=== PATIENT | male | born 1945 | race Caucasian/White ===

== ENCOUNTER 2017-03-07 15:21 | Emergency (ER) | payer MEDICARE ==
[2017-03-07 15:32] VITALS: BP 148/61; RESP 16
--- NOTE | 2017-03-07 16:11 | ED ---
Skin/Abscess/FB HPI - General Chief complaint: Skin/Abscess/Foreign Body Stated complaint: Poss boil /Rt side Time Seen by Provider: 03/07/17 15:34 Source: patient, RN notes reviewed Mode of arrival: ambulatory Limitations: no limitations - History of Present Illness Initial comments: Patient 71-year-old male who presents emergency room today with chief complaint of abscess located to the right side of his abdomen. Patient does admit that he 's had redness and some swelling off and on over the last year. He states she' s gone to [facility]' emergency room and seen for several times. He states not been seen recently. States over the last 3 days she's noticed increased pain and redness and swelling. Patient denies any other complaints or associated symptoms. Patient denies any recent fever, chills, shortness of breath, chest pain, back pain, nausea or vomiting, numbness or tingling, dysuria or hematuria, constipation or diarrhea, headaches or visual changes, or any other complaints. - Related Data Home Medications Medication Instructions Recorded Confirmed Pantoprazole [Protonix] 40 mg PO DAILY 03/07/17 03/07/17 Simvastatin [Zocor] 20 mg PO HS 03/07/17 03/07/17 amLODIPine [Norvasc] 10 mg PO DAILY 03/07/17 03/07/17 metFORMIN HCL 1,000 mg PO BID 03/07/17 03/07/17 Previous Rx's Medication Instructions Recorded Sulfamethox-Tmp 800-160Mg [Bactrim 1 tab PO Q12HR #20 tab 03/07/17 DS 800-160 mg] Allergies Allergy/AdvReac Type Severity Reaction Status Date / Time No Known Allergies Allergy Verified 03/07/17 15:52 Review of Systems ROS Statement: Those systems with pertinent positive or pertinent negative responses have been documented in the HPI. ROS Other: All systems not noted in ROS Statement are negative. Past Medical History Past Medical History: Diabetes Mellitus, Hyperlipidemia, Hypertension History of Any Multi-Drug Resistant Organisms: None Reported Past Surgical History: No Surgical Hx Reported Past Psychological History: No Psychological Hx Reported Smoking Status: Current every day smoker Past Alcohol Use History: None Reported Past Drug Use History: None Reported General Exam - General Exam Comments Initial Comments: General: The patient is awake and alert, in no distress, and does not appear acutely ill. Eye: Pupils are equal, round and reactive to light, extra-ocular movements are intact. No nystagmus. There is normal conjunctiva bilaterally. No signs of icterus. Ears, nose, mouth and throat: There are moist mucous membranes and no oral lesions. Neck: The neck is supple, there is no tenderness or JVD. Cardiovascular: There is a regular rate and rhythm. No murmur, rub or gallop is appreciated. Respiratory: Lungs are clear to auscultation, respirations are non-labored, breath sounds are equal. No wheezes, stridor, rales, or rhonchi. Gastrointestinal: Soft, non-distended, non-tender abdomen without masses or organomegaly noted. There is no rebound or guarding present. No CVA tenderness. Bowel sounds are unremarkable. Musculoskeletal: Normal ROM, no tenderness. Strength 5/5. Sensation intact. Pulses equal bilaterally 2+. Neurological: A&O x 3. CN II-XII intact, There are no obvious motor or sensory deficits. Coordination appears grossly intact. Speech is normal. Skin: Patient does have small abscess located in the right lower quadrant. Superficial redness and swelling. Local redness or erythema locally. Limitations: no limitations Course Vital Signs 03/07/17 15:27 Temperature 99.1 F Pulse Rate 85 Respiratory 16 Rate Blood Pressure 148/61 O2 Sat by Pulse 99 Oximetry Procedures - Procedures Initial comment: Procedure: Incision and drainage The skin overlying the abscess was prepped with Betadine, and anesthetized with 1% lidocaine without epinephrine. A #11 scalpel was then used to incise the abscess. Some purulent material was then extracted from the lesion. Wound culture obtained. Gauze dressing placed on top, The patient tolerated the procedure well. Disposition Clinical Impression: Abscess Disposition: HOME SELF-CARE Condition: Good Instructions: Abscess (ED) Additional Instructions: Please use medication as discussed. Please follow-up with family doctor / surgeon in the next 2 days of symptoms have not improved. Please return to emergency room if the symptoms increase or worsen or for any other concerns. Prescriptions: Sulfamethox-Tmp 800-160Mg [Bactrim DS 800-160 mg] 1 tab PO Q12HR #20 tab Referrals: None,Stated [Primary Care Provider] - 1-2 days Celso Connolly MD [Medical Doctor] - 1-2 days Time of Disposition: 16:10
[2017-03-07 16:31] VITALS: PULSE 89; TEMP 97.8
== END 2017-03-07 16:20 | disposition home or self-care (01) ==
LOC: EC 15:21
DX: L02.211 Cutaneous abscess of abdominal wall (principal); E11.9 Type 2 diabetes mellitus without complications; E78.5 Hyperlipidemia, unspecified; I10 Essential (primary) hypertension; F17.200 Nicotine dependence, unspecified, uncomplicated; Z79.899 Other long term (current) drug therapy; Z79.84 Long term (current) use of oral hypoglycemic drugs
CPT/HCPCS: 10060; 87070; 87077; 87186; 87205; 99283

== ENCOUNTER 2023-07-02 12:13 | Emergency (ER) | payer MEDICARE ==
[2023-07-02 12:20] VITALS: RESP 18; TEMP 98.8
[2023-07-02] MEDS ORDERED: SODIUM CHLORIDE 0.9% 500 ML 500 ML IV STA (12:33)
[2023-07-02] MEDS ORDERED: fentaNYL (PF) 50 MCG/ML 2 ML AMP IVP STA (12:34)
--- NOTE | 2023-07-02 12:37 | ED ---
Abdominal Pain HPI - General Chief Complaint: Abdominal Pain Stated Complaint: Right Side Pain Time Seen by Provider: 07/02/23 12:25 Source: patient, RN notes reviewed, old records reviewed Mode of arrival: ambulatory Limitations: no limitations - History of Present Illness Initial Comments: Nontoxic appearing 78-year-old male presents ambulatory with complaints of 1 month of right lower quadrant/ groin pain. Patient states feels cramping in nature. Denies any fevers. No nausea vomiting or diarrhea. No dysuria. No back pain. Having normal bowel movements. States he does [facility] with his primary care Dr. Rios however pain worsened so his girlfriend brought him to the emergency room. Patient denies any previous abdominal surgeries. Is a half a pack a day smoker with history of diabetes, hypertension and hyperlipidemia. MD Complaint: abdominal pain -: month(s) (1) Location: RLQ Radiation: none Severity scale (1-10): 8 Quality: cramping Consistency: intermittent Improves With: nothing Worsens With: nothing Associated Symptoms: denies other symptoms - Related Data Home Medications Medication Instructions Recorded Confirmed Simvastatin [Zocor] 20 mg PO HS 03/07/17 07/02/23 metFORMIN HCL [Glucophage] 1,000 mg PO BID 03/07/17 07/02/23 Tamsulosin HCl [Flomax] 0.4 mg PO DAILY 07/02/23 07/02/23 amLODIPine BESYLATE/BENAZEPRIL 1 cap PO DAILY 07/02/23 07/02/23 [amLODIPine BESYLATE/BENAZEPRIL 5-10 mg] Allergies Allergy/AdvReac Type Severity Reaction Status Date / Time No Known Allergies Allergy Verified 07/02/23 13:26 Review of Systems ROS Statement: Those systems with pertinent positive or pertinent negative responses have been documented in the HPI. ROS Other: All systems not noted in ROS Statement are negative. Past Medical History Past Medical History: Diabetes Mellitus, Hyperlipidemia, Hypertension History of Any Multi-Drug Resistant Organisms: None Reported Past Surgical History: No Surgical Hx Reported Past Psychological History: No Psychological Hx Reported Past Alcohol Use History: None Reported Past Drug Use History: None Reported General Exam Limitations: no limitations General appearance: alert, in no apparent distress Head exam: Present: atraumatic, normocephalic Eye exam: Present: normal appearance. Absent: scleral icterus, conjunctival injection, periorbital swelling ENT exam: Present: mucous membranes moist Neck exam: Absent: tenderness, meningismus Respiratory exam: Present: normal lung sounds bilaterally. Absent: respiratory distress, accessory muscle use Cardiovascular Exam: Present: regular rate GI/Abdominal exam: Present: soft, tenderness (RLQ), normal bowel sounds. Absent: distended, guarding, rebound, rigid, mass, hernia Extremities exam: Present: full ROM, normal capillary refill. Absent: tenderness, pedal edema Back exam: Present: normal inspection, full ROM. Absent: tenderness, CVA tende rness (R), CVA tenderness (L), muscle spasm, paraspinal tenderness, vertebral tenderness, rash noted Neurological exam: Present: alert, oriented X3, normal gait Psychiatric exam: Present: normal affect, normal mood Skin exam: Present: warm, dry, normal color. Absent: cyanosis, diaphoretic, petechiae, pallor Course Vital Signs 07/02/23 07/02/23 12:17 15:11 Temperature 98.8 F Pulse Rate 98 97 Respiratory 18 18 Rate Blood Pressure 166/88 138/91 O2 Sat by Pulse 98 99 Oximetry Medical Decision Making - Medical Decision Making Was pt. sent in by a medical professional or institution (, PA, MAXILLOFACIAL PROSTHODONTIST, urgent care, hospital, or senior living...) When possible be specific @ -No Did you speak to anyone other than the patient for history (EMS, parent, family, police, friend...)? What history was obtained from this source @ -No Did you review nursing and triage notes (agree or disagree)? Why? @ -I reviewed and agree with nursing and triage notes Were old charts reviewed (outside hosp., previous admission, EMS record, old EKG, old radiological studies, urgent care reports/EKG's, senior living records)? Report findings @ -No old charts were reviewed Differential Diagnosis (chest pain, altered mental status, abdominal pain women, abdominal pain men, vaginal bleeding, weakness, fever, dyspnea, syncope, headache, dizziness, GI bleed, back pain, seizure, CVA, palpatations, mental health, musculoskeletal)? @ -Differential Abdominal Pain Men: Appendicitis, cholecystitis, diverticulosis, ischemic bowel, pancreatitis, hepatitis, UTI, gastroenteritis, AAA, incarcerated hernia, bowel obstruction, constipation, inflammatory bowel, hepatitis, peptic ulcer disease, splenic infarction, perforated viscus, testicular torsion, this is not meant to be an all-inclusive list EKG interpreted by me (3pts min.). @ -yes EKG interpreted by me shows sinus rhythm with a ventricular rate of 96, MS interval 0.182, QRS 0.80, QTC 0.394, normal axis. X-rays interpreted by me (1pt min.). @ -no CT interpreted by me (1pt min.). @ -no U/S interpreted by me (1pt. min.). @ -None done What testing was considered but not performed or refused? (CT, X-rays, U/S, labs)? Why? @ -None What meds were considered but not given or refused? Why? @ -None Did you discuss the management of the patient with other professionals (professionals i.e. , PA, MAXILLOFACIAL PROSTHODONTIST, lab, RT, psych nurse, social services designee, fleet manager, teacher, civilian jail officer, bottle caser)? Give summary @ -No Was smoking cessation discussed for >3mins.? @ -No Was critical care preformed (if so, how long)? @ -No Were there social determinants of health that impacted care today? How? (Ho melessness, low income, unemployed, alcoholism, drug addiction, transportation, low edu. Level, literacy, decrease access to med. care, custodial, rehab)? @ -No Was there de-escalation of care discussed even if they declined (Discuss DNR or withdrawal of care, Hospice)? DNR status @ -No What co-morbidities impacted this encounter? (DM, HTN, Smoking, COPD, CAD, Cancer, CVA, ARF, Chemo, Hep., AIDS, mental health diagnosis, sleep apnea, morbid obesity)? @ -Diabetes, hypertension, hyperlipidemia Was patient admitted / discharged? Hospital course, mention meds given and route, prescriptions, significant lab abnormalities, going to OR and other pertinent info. @ -Discharged Nontoxic appearing 78-year-old male presents ambulatory with complaints of 1 month of right lower quadrant/ groin pain. Patient states feels cramping in nature. Denies any fevers. No nausea vomiting or diarrhea. No dysuria. No back pain. Having normal bowel movements. States he does have an appointment at 7:00 tonight with his primary care Dr. Rios however pain worsened so his girlfriend brought him to the emergency room. Patient denies any previous abdominal surgeries. Is a half a pack a day smoker with history of diabetes, hypertension and hyperlipidemia. Patient states that he is concerned for possible appendicitis. On physical exam patient has minimal right lower quadrant pain. No evidence of hernia. No pain with flexion of the hip. CT abdomen and pelvis shows no evidence of acute abdominal process. Colonic diverticulosis. No obstructive uropathy or calculi. Second portion duodenal diverticulum. Moderate degenerative changes throughout the spine. Labs show no evidence of leukocytosis. Electrolytes show no concerning values. Troponin -0.012. EKG interpreted by me shows sinus rhythm with a ventricular rate of 96, MS interval 0.182, QRS 0.80, QTC 0.394, normal axis. Urinalysis trace leukocyte esterase 4 white blood cells and occasional bacteria. No nitrites. Patient denies any dysuria. Patient continues to complain of mild discomfort right groin. He was offered additional pain medication and declined. Patient does have an appointment with his primary care doctor this evening. He was discharged home and directed to follow up with his doctor. Return to the emergency room with a new or concerning symptoms. He is agreeable to this plan of care. Case discussed with Dr. Whitfield Undiagnosed new problem with uncertain prognosis? @ -No Drug Therapy requiring intensive monitoring for toxicity (Heparin, Nitro, Insulin, Cardizem)? @ -No Were any procedures done? @ -No Diagnosis/symptom? @ -Abdominal pain Acute, or Chronic, or Acute on Chronic? @ -Acute Uncomplicated (without systemic symptoms) or Complicated (systemic symptoms)? @ -Uncomplicated Side effects of treatment? @ -No Exacerbation, Progression, or Severe Exacerbation? @ -No Poses a threat to life or bodily function? How? (Chest pain, USA, IA, pneumonia, PE, COPD, DKA, ARF, appy, cholecystitis, CVA, Diverticulitis, Homicidal, Suicidal, threat to staff... and all critical care pts) @ -No - Lab Data Result diagrams: 07/02/23 12:58 07/02/23 12:58 Lab Results 07/02/23 07/02/23 07/02/23 Range/Units 12:58 12:58 12:58 WBC 5.3 (3.8-10.6) k/uL RBC 5.00 (4.30-5.90) m/uL Hgb 15.9 (13.0-17.5) gm/dL Hct 46.1 (39.0-53.0) % MCV 92.2 (80.0-100.0) fL MCH 31.8 (25.0-35.0) pg MCHC 34.5 (31.0-37.0) g/dL RDW 14.5 (11.5-15.5) % Plt Count 167 (150-450) k/uL MPV 8.5 Neutrophils % 64 % Lymphocytes % 22 % Monocytes % 7 % Eosinophils % 6 % Basophils % 1 % Neutrophils # 3.4 (1.3-7.7) k/uL Lymphocytes # 1.2 (1.0-4.8) k/uL Monocytes # 0.4 (0-1.0) k/uL Eosinophils # 0.3 (0-0.7) k/uL Basophils # 0.0 (0-0.2) k/uL PT 10.5 (9.0-12.0) sec INR 1.0 (<1.2) APTT 28.3 (22.0-30.0) sec Sodium 136 L (137-145) mmol/L Potassium 4.1 (3.5-5.1) mmol/L Chloride 107 (98-107) mmol/L Carbon Dioxide 19 L (22-30) mmol/L Anion Gap 10 mmol/L BUN 15 (9-20) mg/dL Creatinine 0.98 (0.66-1.25) mg/dL Est GFR (CKD-EPI)AfAm 85 (>60 ml/min/1.73 sqM) Est GFR (CKD-EPI)NonAf 74 (>60 ml/min/1.73 sqM) Glucose 104 H (74-99) mg/dL Plasma Lactic Acid Vaibhav (0.7-2.0) mmol/L Calcium 8.7 (8.4-10.2) mg/dL Total Bilirubin 0.9 (0.2-1.3) mg/dL AST 17 (17-59) U/L ALT 15 (4-49) U/L Alkaline Phosphatase 69 (38-126) U/L Troponin I (0.000-0.034) ng/mL Total Protein 6.6 (6.3-8.2) g/dL Albumin 4.1 (3.5-5.0) g/dL Amylase 57 (30-110) U/L Lipase 95 (23-300) U/L Urine Color Urine Appearance (Clear) Urine pH (5.0-8.0) Ur Specific [place] (1.001-1.035) Urine Protein (Negative) Urine Glucose (UA) (Negative) Urine Ketones (Negative) Urine Blood (Negative) Urine Nitrite (Negative) Urine Bilirubin (Negative) Urine Urobilinogen (<2.0) mg/dL Ur Leukocyte Esterase (Negative) Urine RBC (0-5) /hpf Urine WBC (0-5) /hpf Urine Bacteria (None) /hpf 07/02/23 07/02/23 07/02/23 Range/Units 12:58 12:58 12:59 WBC (3.8-10.6) k/uL RBC (4.30-5.90) m/uL Hgb (13.0-17.5) gm/dL Hct (39.0-53.0) % MCV (80.0-100.0) fL MCH (25.0-35.0) pg MCHC (31.0-37.0) g/dL RDW (11.5-15.5) % Plt Count (150-450) k/uL MPV Neutrophils % % Lymphocytes % % Monocytes % % Eosinophils % % Basophils % % Neutrophils # (1.3-7.7) k/uL Lymphocytes # (1.0-4.8) k/uL Monocytes # (0-1.0) k/uL Eosinophils # (0-0.7) k/uL Basophils # (0-0.2) k/uL PT (9.0-12.0) sec INR (<1.2) APTT (22.0-30.0) sec Sodium (137-145) mmol/L Potassium (3.5-5.1) mmol/L Chloride (98-107) mmol/L Carbon Dioxide (22-30) mmol/L Anion Gap mmol/L BUN (9-20) mg/dL Creatinine (0.66-1.25) mg/dL Est GFR (CKD-EPI)AfAm (>60 ml/min/1.73 sqM) Est GFR (CKD-EPI)NonAf (>60 ml/min/1.73 sqM) Glucose (74-99) mg/dL Plasma Lactic Acid Vaibhav 0.8 (0.7-2.0) mmol/L Calcium (8.4-10.2) mg/dL Total Bilirubin (0.2-1.3) mg/dL AST (17-59) U/L ALT (4-49) U/L Alkaline Phosphatase (38-126) U/L Troponin I <0.012 (0.000-0.034) ng/mL Total Protein (6.3-8.2) g/dL Albumin (3.5-5.0) g/dL Amylase (30-110) U/L Lipase (23-300) U/L Urine Color Colorless Urine Appearance Clear (Clear) Urine pH 7.0 (5.0-8.0) Ur Specific [place] 1.004 (1.001-1.035) Urine Protein Negative (Negative) Urine Glucose (UA) Negative (Negative) Urine Ketones Negative (Negative) Urine Blood Negative (Negative) Urine Nitrite Negative (Negative) Urine Bilirubin Negative (Negative) Urine Urobilinogen <2.0 (<2.0) mg/dL Ur Leukocyte Esterase Trace H (Negative) Urine RBC <1 (0-5) /hpf Urine WBC 4 (0-5) /hpf Urine Bacteria Occasional H (None) /hpf - EKG Data -: EKG Interpreted by [place] EKG shows normal: sinus rhythm (EKG interpreted by [place] shows sinus rhythm with a ventricular rate of 96, MS interval 0.182, QRS 0.80, QTC 0.394, normal axis) Disposition Clinical Impression: Abdominal pain Disposition: HOME SELF-CARE Condition: Good Additional Instructions: You bloodwork, CT scan of the abdomen and EKG do not show any abnormalities today. Follow-up with the primary care doctor as scheduled this evening. Return to the emergency room with any new or concerning symptoms including increased pain, pe rsistent nausea vomiting or fevers. Is patient prescribed a controlled substance at d/c from ED?: No Referrals: Anup Rios MD [Primary Care Provider] - 1-2 days Time of Disposition: 14:58
[2023-07-02 13:20] LABS: Basophils % (A) 1 %; Eosinophils # (A) 0.3 k/uL (0-0.7); Eosinophils % (A) 6 %; HCT 46.1 % (39.0-53.0); HGB 15.9 gm/dL (13.0-17.5); Lymphocytes # (A) 1.2 k/uL (1.0-4.8); Lymphocytes % (A) 22 %; MCH 31.8 pg (25.0-35.0); MCHC 34.5 g/dL (31.0-37.0); MCV 92.2 fL (80.0-100.0); Mean Platelet Volume 8.5; Monocytes # (A) 0.4 k/uL (0-1.0); Monocytes % (A) 7 %; Neutrophils # (A) 3.4 k/uL (1.3-7.7); Neutrophils % (A) 64 %; Platelet Count 167 k/uL (150-450); RDW 14.5 % (11.5-15.5); WBC 5.3 k/uL (3.8-10.6)
[2023-07-02 13:31] LABS: Appearance,Urine Clear (Clear); Bacteria,Urine Occasional /hpf; Bilirubin,Urine Negative (Negative); Blood,Urine Negative (Negative); Color,Urine Colorless; Glucose,Urine (UA) Negative (Negative); Ketones,Urine Negative (Negative); Leukocyte Esterase,Urine Trace (Negative); Nitrite,Urine Negative (Negative); Protein,Urine Negative (Negative); RBC,Urine <1 /hpf (0-5); Specific Gravity,Urine 1.004 (1.001-1.035); Urobilinogen,Urine <2.0 mg/dL (<2.0); WBC,Urine 4 /hpf (0-5)
[2023-07-02 13:32] LABS: Partial Thromboplastin Time 28.3 sec (22.0-30.0); Prothrombin Time 10.5 sec (9.0-12.0)
[2023-07-02 13:35] LABS: ALT 15 U/L (4-49); AST 17 U/L (17-59); African American GFR (CKD) 85 (>60 ml/min/1.73 sqM); Albumin 4.1 g/dL (3.5-5.0); Alkaline Phosphatase 69 U/L (38-126); Amylase 57 U/L (30-110); Anion Gap 10 mmol/L; Blood Urea Nitrogen 15 mg/dL (9-20); Calcium 8.7 mg/dL (8.4-10.2); Carbon Dioxide 19 mmol/L (22-30); Chloride 107 mmol/L (98-107); Glucose 104 mg/dL (74-99); Lipase 95 U/L (23-300); Non-African American GFR(CKD) 74 (>60 ml/min/1.73 sqM); Potassium 4.1 mmol/L (3.5-5.1); Sodium 136 mmol/L (137-145); Total Bilirubin 0.9 mg/dL (0.2-1.3); Total Protein 6.6 g/dL (6.3-8.2)
--- NOTE | 2023-07-02 14:35 | CT ---
EXAMINATION TYPE: CT abdomen pelvis w con CT DLP: 1398.8 mGycm, Automated exposure control for dose reduction was used. DATE OF EXAM: 07/02/2023 2:18 PM COMPARISON: None CLINICAL INDICATION:Male, 78 years old with history of abdominal pain; Abdominal pain TECHNIQUE: Axial CT of the abdomen and pelvis. Sagittal and coronal reformats were created on a [employer] workstation. Contrast used:100 mL of Isovue 300 with IV Contrast, (none if empty) Oral contrast used: without Oral Contrast (none if empty) FINDINGS: LOWER CHEST: Remote right rib 7 fracture with callus formation which is nonfused. ABDOMEN LIVER: Unremarkable GALLBLADDER AND BILE DUCTS: Unremarkable. PANCREAS: Unremarkable. SPLEEN: Unremarkable. ADRENAL GLANDS: Unremarkable. KIDNEYS AND URETERS: No evidence of hydronephrosis or renal calculus. The ureters are unremarkable. Bilateral simple appearing renal cysts. PELVIS BLADDER: Unremarkable REPRODUCTIVE: Unremarkable. ABDOMEN & PELVIS STOMACH AND BOWEL: No evidence of bowel obstruction. The appendix is normal Scattered colonic diverti cula. Large diverticulum off the second portion of the duodenum. PERITONEUM/RETROPERITONEUM: No evidence of pneumoperitoneum or free fluid. VASCULATURE: No evidence of aortic aneurysm. MUSCULOSKELETAL: No acute osseous abnormalities. Moderate disc degeneration changes are present throu ghout the thoracolumbar spine. LYMPH NODES: No gross evidence for lymphadenopathy. SOFT TISSUE/ABDOMINAL WALL: Fatty changes to the inguinal canals bilaterally. IMPRESSION: 1. No evidence for acute abdominal process. 2. Colonic diverticulosis. 3. No obstructive uropathy or calculi. 4. Second portion duodenal diverticulum. 5. Moderate degeneration changes throughout the spine.
[2023-07-02 15:12] VITALS: BP 138/91; PULSE 97
== END 2023-07-02 15:12 | disposition home or self-care (01) ==
LOC: EC 12:13
DX: K57.50 Diverticulosis of both small and large intestine without perforation or abscess without bleeding (principal); I10 Essential (primary) hypertension; E11.9 Type 2 diabetes mellitus without complications; E78.5 Hyperlipidemia, unspecified; Z79.899 Other long term (current) drug therapy; Z79.84 Long term (current) use of oral hypoglycemic drugs
CPT/HCPCS: 36415; 93005; 80053; 82150; 83605; 83690; 84484; 85025; 85610; 85730; 81001; 74177; 99284; 96374; J3010; Q9967

== ENCOUNTER → 2023-07-03 | Outpatient (CLI) | payer MEDICARE ==
[2023-07-03 14:56] LABS: African American GFR (CKD) 75 (>60 ml/min/1.73 sqM); Blood Urea Nitrogen 16 mg/dL (9-20); Non-African American GFR(CKD) 65 (>60 ml/min/1.73 sqM)
--- NOTE | 2023-07-03 16:20 | CT ---
EXAMINATION TYPE: CT angio abdomen pelvis DATE OF EXAM: 07/03/2023 COMPARISON: July 02, 2023 HISTORY: VASCULAR DISORDER OF INTESTINE. ct a/p w/ contrast yesterday. CT DLP: 1523.0 mGycm CONTRAST: CTA abdominal aorta with 3-D reconstruction is performed without Oral Contrast and without and with I V Contrast, patient injected with 100 mL of Isovue 370. Contrast CTA of the abdominal aorta was performed from the lung bases through the base of the pelvis. 3-D reconstruction imaging obtained at a separate workstation. CONTRAST CT ABDOMEN AND PELVIS ABDOMINAL AORTA: No evidence for abdominal aortic aneurysm. No dissection. Iliac vessels are symmet marta and patent. Celiac, SMA and KAMILA are all patent. Renal arteries enhance symmetrically. LIVER/GB- No significant abnormality is seen. PANCREAS- No significant abnormality is seen. SPLEEN- No significant abnormality is seen. ADRENALS- No significant abnormality is seen. KIDNEYS/BLADDER- No significant abnormality is seen. No cortical cysts redemonstrated. BOWEL-no inflammatory process seen. No evidence of bowel dilatation. Normal appendix. Incidental duod enal diverticulum. GENITAL ORGANS: Prostate calcifications. Bilateral scrotal hydroceles. LYMPH NODES- No greater than 1cm abdominal or pelvic lymph nodes are appreciated. OSSEOUS STRUCTURES-moderate degenerative changes lumbar spine. OTHER- No significant abnormality is seen. IMPRESSION- 1. No evidence for abdominal aortic aneurysm or dissection. Branch vessels are patent. 2. No evidence for inflammatory process of the gastrointestinal tract, free air or abscess.
== END | disposition home or self-care (01) ==
LOC: RADCTMAIN 13:08
PROVIDERS: ATTEND Family Medicine
DX: K55.9 Vascular disorder of intestine, unspecified (principal)
CPT/HCPCS: 82565; 84520; 36415; 74174; Q9967

== ENCOUNTER 2023-08-22 14:49 | Inpatient (IN) | payer MEDICARE ==
[2023-08-22 14:56] LABS: Glucose,Whole Blood 114 mg/dL (70-110)
[2023-08-22] MEDS ORDERED: SODIUM CHLORIDE 0.9% 1,000 ML IV STA ×2 (15:22→18:47)
[2023-08-22 15:45] LABS: Basophils % (A) 0 %; Eosinophils # (A) 0.1 k/uL (0-0.7); Eosinophils % (A) 1 %; HCT 47.2 % (39.0-53.0); HGB 16.2 gm/dL (13.0-17.5); Lymphocytes # (A) 0.6 k/uL (1.0-4.8); Lymphocytes % (A) 4 %; MCHC 34.4 g/dL (31.0-37.0); MCV 93.1 fL (80.0-100.0); Mean Platelet Volume 9.2; Monocytes # (A) 0.8 k/uL (0-1.0); Monocytes % (A) 5 %; Neutrophils # (A) 13.6 k/uL (1.3-7.7); Neutrophils % (A) 89 %; Platelet Count 181 k/uL (150-450); RBC 5.07 m/uL (4.30-5.90); RDW 14.3 % (11.5-15.5); WBC 15.3 k/uL (3.8-10.6)
--- NOTE | 2023-08-22 15:46 | ED ---
General Adult HPI - General Chief complaint: Weakness Stated complaint: Weakness Time Seen by Provider: 08/22/23 15:12 Source: patient, EMS, RN notes reviewed Mode of arrival: EMS Limitations: no limitations - History of Present Illness Initial comments: Patient is a 78-year-old male who presents emergency department for weakness. Apparently patient normally ambulates without ate a walker or cane. At approximately noon patient had a witnessed fall. I evaluated the patient shortly after 3 PM. Patient denies loss of consciousness. Is unknown if he is on blood thinners but thinks he is but cannot name which one. Fall from standing. Patient states that he felt like his legs gave out on him. Denies any focal weakness. Denies any confusion. States he normally has no issue with walking. Denies any pain. Denies chest pain, shortness of breath, abdominal pain, nausea, vomiting. Denies any headache or blurry vision. His no other acute complaints at this time. Denies any back pain. His only injury from the fall he states was when he fell into the wall and he has a small skin tear on his posterior right forearm. Presents for further evaluation at this time. - Related Data Home Medications Medication Instructions Recorded Confirmed Simvastatin [Zocor] 20 mg PO HS 03/07/17 08/22/23 metFORMIN HCL [Glucophage] 1,000 mg PO BID 03/07/17 08/22/23 Tamsulosin HCl [Flomax] 0.4 mg PO DAILY 07/02/23 08/22/23 amLODIPine BESYLATE/BENAZEPRIL 1 cap PO DAILY 07/02/23 08/22/23 [amLODIPine BESYLATE/BENAZEPRIL 5-10 mg] Allergies Allergy/AdvReac Type Severity Reaction Status Date / Time No Known Allergies Allergy Verified 08/22/23 16:25 Review of Systems ROS Statement: Those systems with pertinent positive or pertinent negative responses have been documented in the HPI. Review of Systems: CONST: Denies fever EYES: Denies blurry vision ENT: Denies nasal congestion C/V: Denies Chest pain RESP: Denies shortness of breath GI: Denies abdominal pain : Denies dysuria SKIN: Endorses right arm abrasion MSK: Denies joint pain. NEURO: Endorses Bilateral leg weakness ROS Other: All systems not noted in ROS Statement are negative. Past Medical History Past Medical History: Diabetes Mellitus, Hyperlipidemia, Hypertension History of Any Multi-Drug Resistant Organisms: None Reported Past Surgical History: No Surgical Hx Reported Additional Past Surgical History / Comment(s): nose Past Psychological History: No Psychological Hx Reported Smoking Status: Current every day smoker Past Alcohol Use History: None Reported Past Drug Use History: None Reported General Exam - General Exam Comments Initial Comments: General: Appears in no acute distress. HEAD: Normal with no signs of head trauma. Negative Menard sign, negative raccoon eyes. EYES: PERRLA, EOMI, conjunctiva normal, no discharge. Pupils are 3 mm and equal bilaterally. ENT: Hearing grossly intact, normal oropharynx. RESPIRATORY: Clear breath sounds bilaterally. No wheezes, rales, or rhonchi. C/V: Tachycardic. S1 and S2 auscultated, no edema, peripheral pulses 2+ and intact throughout ABD: Abd is soft, nontender, nondistended EXT: Normal range of motion, no obvious deformity. Pelvis is stable. Patient has a skin tear over the right forearm.Patient does have some midline lumbar spine tenderness to palpation without any step-offs or deformities. SKIN: No rashes or lesions observed on exposed skin. NEURO: Alert and oriented 2. Confused to year/time. Cranial nerves II through XII are intact. Patient has some mild bilateral decreased strength in lower extremities and symmetrical. No focal or unilateral weakness or sensory deficits. NIH currently is 0. GCS of 15. Patient's weakness is bilateral with no focal deficits. Patient is unable to stand however due to weakness when maikel ding. Denies lightheadedness. Baseline, per patient he ambulates without cane or a walker. Limitations: no limitations Course Vital Signs 08/22/23 08/22/23 08/22/23 14:57 15:06 18:13 Temperature 98.7 F Pulse Rate 115 H 128 H 99 Respiratory 22 18 18 Rate Blood Pressure 142/70 162/79 122/75 O2 Sat by Pulse 20 L 96 94 L Oximetry 08/22/23 19:33 Temperature Pulse Rate 96 Respiratory 18 Rate Blood Pressure 126/68 O2 Sat by Pulse 95 Oximetry Medical Decision Making - Medical Decision Making Was pt. sent in by a medical professional or institution (, PA, [facility], urgent care, hospital, or [place] [facility]...) When possible be specific @ -No Did you speak to anyone other than the patient for history (EMS, parent, family, police, friend...)? What history was obtained from this source @ -I spoke with nursing staff who spoke with EMS who provided the history. We were able to confirm with pharmacy the patient was previously on Xeralto last year but he has been off it for multiple months. is no longer on blood thinners. Patient uncertain why he was on it. Did you review nursing and triage notes (agree or disagree)? Why? @ -I reviewed and agree with nursing and triage notes Were old charts reviewed (outside hosp., previous admission, EMS record, old EKG, old radiological studies, urgent care reports/EKG's, [place] [facility] facility records)? Report findings @ -Old charts reviewed Differential Diagnosis (chest pain, altered mental status, abdominal pain women, abdominal pain men, vaginal bleeding, weakness, fever, dyspnea, syncope, headache, dizziness, GI bleed, back pain, seizure, CVA, palpatations, mental health, musculoskeletal)? @ -Differential Weakness: Hypoglycemia, shock, sepsis, hyponatremia, anemia, infection, GA, ETOH, adverse medicine reaction, overdose, stroke, this is not meant to be an all-inclusive list. EKG interpreted by me (3pts min.). @ -As above X-rays interpreted by me (1pt min.). @ -Patient's x-rays negative for any obvious traumatic injuries. Chest x-ray reveals no obvious acute cardio or process. CT interpreted by me (1pt min.). @ -CT lumbar spine reveals degenerative disc disease. CT brain reveals no obvious acute intracranial process. CT angiogram brain reveals no obvious occlusion or blockage suggestive of stroke. Radiology does interpreted as showing MCA asymmetry. U/S interpreted by me (1pt. min.). @ -None done What testing was considered but not performed or refused? (CT, X-rays, U/S, labs)? Why? @ -None What meds were considered but not given or refused? Why? @ -None Did you discuss the management of the patient with other professionals (professionals i.e. , PA, [facility], lab, RT, psych nurse, child protective services social worker, equipment service engineer, teacher, collections officer, rehabilitation caseworker)? Give summary @ -Discussed with Dr. Anderson of neurology who agreed that with the MCA asymmetry, in the absence of any obvious focal stroke symptoms as the patient's symptoms are generalized weakness and lower extremity weakness with an NIH of 0 with no actionable findings on CT per stroke, he recommends MRI. This was ordered. Discussed with the admitting physician, Dr. Ruby who accepted the patient. Was smoking cessation discussed for >3mins.? @ -No Was critical care preformed (if so, how long)? @ -Yes, 36 minutes. Were there social determinants of health that impacted care today? How? (Homelessness, low income, unemployed, alcoholism, drug addiction, transportation, low edu. Level, literacy, decrease access to med. care, snf, rehab)? @ -No Was there de-escalation of care discussed even if they declined (Discuss DNR or withdrawal of care, Hospice)? DNR status @ -No What co-morbidities impacted this encounter? (DM, HTN, Smoking, COPD, CAD, Cancer, CVA, ARF, Chemo, Hep., AIDS, mental health diagnosis, sleep apnea, morbid obesity)? @ -None Was patient admitted / discharged? Hospital course, mention meds given and route, prescriptions, significant lab abnormalities, going to OR and other pertinent info. @ -Based on patient's presentation and physical exam, I'm concerned for his bilateral lower extremity weakness which seems symmetrical. CVA less likely as he has no other symptoms and symptoms are bilateral and unilateral in nature however we will still evaluate the patient for possible CVA as EMS still nursing staff the patient did slump to his right when he fell. Unknown regarding blood thinners as patient cannot name one and we do not have any listed in his chart. Vital signs are within acceptable limits other than tachycardia. Broad workup will be obtained. We will start the patient on some IV fluids. Patient in agreement with this plan. Denies any significant pain at this time. EKG revealed sinus tachycardia with no evidence of acute ischemia. Patient's imaging unremarkable, other than CT angiogram of which reveals MCA asymmetry as read by radiology. No obvious occlusion or CVA. Patient's labs remarkable for UTI and leukocytosis. Patient started on IV Rocephin. We'll continue IV fluids. Cultures sent. On reevaluation, patient remains confused. He remains with bilateral lower extremity weakness. Would like to admit the patient at this time. He was in agreement with this plan. I spoke with Dr. Anderson of neuro who was in agreement with plan for MRI as well as the admitting physician Dr. Ruby who accepted the patient. Undiagnosed new problem with uncertain prognosis? @ -No Drug Therapy requiring intensive monitoring for toxicity (Heparin, Nitro, Insulin, Cardizem)? @ -No Were any procedures done? @ -No Diagnosis/symptom? @ -Confusion, weakness, UTI Acute, or Chronic, or Acute on Chronic? @ -Acute Uncomplicated (without systemic symptoms) or Complicated (systemic symptoms)? @ -Complicated Side effects of treatment? @ -none Exacerbation, Progression, or Severe Exacerbation] @ -no Poses a threat to life or bodily function? @ -Yes - Lab Data Result diagrams: 08/22/23 15:00 08/22/23 15:00 Lab Results 08/22/23 08/22/23 08/22/23 Range/Units 14:55 15:00 15:00 WBC 15.3 H (3.8-10.6) k/uL RBC 5.07 (4.30-5.90) m/uL Hgb 16.2 (13.0-17.5) gm/dL Hct 47.2 (39.0-53.0) % MCV 93.1 (80.0-100.0) fL MCH 32.0 (25.0-35.0) pg MCHC 34.4 (31.0-37.0) g/dL RDW 14.3 (11.5-15.5) % Plt Count 181 (150-450) k/uL MPV 9.2 Neutrophils % 89 % Lymphocytes % 4 % Monocytes % 5 % Eosinophils % 1 % Basophils % 0 % Neutrophils # 13.6 H (1.3-7.7) k/uL Lymphocytes # 0.6 L (1.0-4.8) k/uL Monocytes # 0.8 (0-1.0) k/uL Eosinophils # 0.1 (0-0.7) k/uL Basophils # 0.0 (0-0.2) k/uL PT 11.1 (9.0-12.0) sec INR 1.1 (<1.2) APTT 31.8 H (22.0-30.0) sec Sodium (137-145) mmol/L Potassium (3.5-5.1) mmol/L Chloride (98-107) mmol/L Carbon Dioxide (22-30) mmol/L Anion Gap mmol/L BUN (9-20) mg/dL Creatinine (0.66-1.25) mg/dL Est GFR (CKD-EPI)AfAm (>60 ml/min/1.73 sqM) Est GFR (CKD-EPI)NonAf (>60 ml/min/1.73 sqM) Glucose (74-99) mg/dL POC Glucose (mg/dL) 114 H (70-110) mg/dL POC Glu Rough [employer] Grader ID Chelsea Gilbert Plasma Lactic Acid Vaibhav (0.7-2.0) mmol/L Calcium (8.4-10.2) mg/dL Magnesium (1.6-2.3) mg/dL Total Bilirubin (0.2-1.3) mg/dL AST (17-59) U/L ALT (4-49) U/L Alkaline Phosphatase (38-126) U/L Troponin I (0.000-0.034) ng/mL Total Protein (6.3-8.2) g/dL Albumin (3.5-5.0) g/dL Urine Color Urine Appearance (Clear) Urine pH (5.0-8.0) Ur Specific [place] (1.001-1.035) Urine Protein (Negative) Urine Glucose (UA) (Negative) Urine Ketones (Negative) Urine Blood (Negative) Urine Nitrite (Negative) Urine Bilirubin (Negative) Urine Urobilinogen (<2.0) mg/dL Ur Leukocyte Esterase (Negative) Urine RBC (0-5) /hpf Urine WBC (0-5) /hpf Urine Bacteria (None) /hpf Hyaline Casts (0-2) /lpf Urine Mucus (None) /hpf Influenza Type A (PCR) (Not Detectd) Influenza Type B (PCR) (Not Detectd) RSV (PCR) (Not Detectd) SARS-CoV-2 (PCR) (Not Detectd) 08/22/23 08/22/23 08/22/23 Range/Units 15:00 15:00 15:00 WBC (3.8-10.6) k/uL RBC (4.30-5.90) m/uL Hgb (13.0-17.5) gm/dL Hct (39.0-53.0) % MCV (80.0-100.0) fL MCH (25.0-35.0) pg MCHC (31.0-37.0) g/dL RDW (11.5-15.5) % Plt Count (150-450) k/uL MPV Neutrophils % % Lymphocytes % % Monocytes % % Eosinophils % % Basophils % % Neutrophils # (1.3-7.7) k/uL Lymphocytes # (1.0-4.8) k/uL Monocytes # (0-1.0) k/uL Eosinophils # (0-0.7) k/uL Basophils # (0-0.2) k/uL PT (9.0-12.0) sec INR (<1.2) APTT (22.0-30.0) sec Sodium 132 L (137-145) mmol/L Potassium 4.3 (3.5-5.1) mmol/L Chloride 101 (98-107) mmol/L Carbon Dioxide 22 (22-30) mmol/L Anion Gap 9 mmol/L BUN 14 (9-20) mg/dL Creatinine 0.91 (0.66-1.25) mg/dL Est GFR (CKD-EPI)AfAm >90 (>60 ml/min/1.73 sqM) Est GFR (CKD-EPI)NonAf 80 (>60 ml/min/1.73 sqM) Glucose 101 H (74-99) mg/dL POC Glucose (mg/dL) (70-110) mg/dL POC Glu [employer] [place] Grader ID Plasma Lactic Acid Vaibhav 1.7 (0.7-2.0) mmol/L Calcium 9.2 (8.4-10.2) mg/dL Magnesium 1.8 (1.6-2.3) mg/dL Total Bilirubin 1.1 (0.2-1.3) mg/dL AST 18 (17-59) U/L ALT 15 (4-49) U/L Alkaline Phosphatase 76 (38-126) U/L Troponin I <0.012 (0.000-0.034) ng/mL Total Protein 7.0 (6.3-8.2) g/dL Albumin 4.2 (3.5-5.0) g/dL Urine Color Urine Appearance (Clear) Urine pH (5.0-8.0) Ur Specific [place] (1.001-1.035) Urine Protein (Negative) Urine Glucose (UA) (Negative) Urine Ketones (Negative) Urine Blood (Negative) Urine Nitrite (Negative) Urine Bilirubin (Negative) Urine Urobilinogen (<2.0) mg/dL Ur Leukocyte Esterase (Negative) Urine RBC (0-5) /hpf Urine WBC (0-5) /hpf Urine Bacteria (None) /hpf Hyaline Casts (0-2) /lpf Urine Mucus (None) /hpf Influenza Type A (PCR) (Not Detectd) Influenza Type B (PCR) (Not Detectd) RSV (PCR) (Not Detectd) SARS-CoV-2 (PCR) (Not Detectd) 08/22/23 08/22/23 Range/Units 15:22 15:23 WBC (3.8-10.6) k/uL RBC (4.30-5.90) m/uL Hgb (13.0-17.5) gm/dL Hct (39.0-53.0) % MCV (80.0-100.0) fL MCH (25.0-35.0) pg MCHC (31.0-37.0) g/dL RDW (11.5-15.5) % Plt Count (150-450) k/uL MPV Neutrophils % % Lymphocytes % % Monocytes % % Eosinophils % % Basophils % % Neutrophils # (1.3-7.7) k/uL Lymphocytes # (1.0-4.8) k/uL Monocytes # (0-1.0) k/uL Eosinophils # (0-0.7) k/uL Basophils # (0-0.2) k/uL PT (9.0-12.0) sec INR (<1.2) APTT (22.0-30.0) sec Sodium (137-145) mmol/L Potassium (3.5-5.1) mmol/L Chloride (98-107) mmol/L Carbon Dioxide (22-30) mmol/L Anion Gap mmol/L BUN (9-20) mg/dL Creatinine (0.66-1.25) mg/dL Est GFR (CKD-EPI)AfAm (>60 ml/min/1.73 sqM) Est GFR (CKD-EPI)NonAf (>60 ml/min/1.73 sqM) Glucose (74-99) mg/dL POC Glucose (mg/dL) (70-110) mg/dL POC Glu Rough [place] Grader ID Plasma Lactic Acid Vaibhav (0.7-2.0) mmol/L Calcium (8.4-10.2) mg/dL Magnesium (1.6-2.3) mg/dL Total Bilirubin (0.2-1.3) mg/dL AST (17-59) U/L ALT (4-49) U/L Alkaline Phosphatase (38-126) U/L Troponin I (0.000-0.034) ng/mL Total Protein (6.3-8.2) g/dL Albumin (3.5-5.0) g/dL Urine Color Light Yellow Urine Appearance Cloudy (Clear) Urine pH 5.5 (5.0-8.0) Ur Specific [place] 1.021 (1.001-1.035) Urine Protein Trace H (Negative) Urine Glucose (UA) Negative (Negative) Urine Ketones Negative (Negative) Urine Blood Trace H (Negative) Urine Nitrite Negative (Negative) Urine Bilirubin Negative (Negative) Urine Urobilinogen <2.0 (<2.0) mg/dL Ur Leukocyte Esterase Small H (Negative) Urine RBC 3 (0-5) /hpf Urine WBC 25 H (0-5) /hpf Urine Bacteria Few H (None) /hpf Hyaline Casts 1 (0-2) /lpf Urine Mucus Rare H (None) /hpf Influenza Type A (PCR) Not Detected (Not Detectd) Influenza Type B (PCR) Not Detected (Not Detectd) RSV (PCR) Not Detected (Not Detectd) SARS-CoV-2 (PCR) Not Detected (Not Detectd) - EKG Data -: EKG Interpreted by Me EKG Comments: 12-lead Electrocardiogram Interpretation Note EKG was reviewed and interpreted by myself. 12-lead ECG performed at 1540 is interpreted by me as revealing sinus tachycardia at a rate of 116 beats per minute. [place] is normal. VA interval is 176 ms, QRS duration is 80 ms, QTc is 371 ms.. There were no ST or T wave abnormalities to suggest myocardial ischemia or injury. R wave progression across the precordium was satisfactory. By my interpretation this EKG is non-diagnostic for acute ischemia. Critical Care Time Critical Care Time: Yes Total Critical Care Time: 36 Disposition Clinical Impression: Weakness, UTI (urinary tract infection), Confusion Disposition: ADMITTED IP TO THIS HOSP Condition: Stable Time of Disposition: 18:30
[2023-08-22 15:53] LABS: ALT 15 U/L (4-49); AST 18 U/L (17-59); African American GFR (CKD) >90 (>60 ml/min/1.73 sqM); Albumin 4.2 g/dL (3.5-5.0); Alkaline Phosphatase 76 U/L (38-126); Anion Gap 9 mmol/L; Blood Urea Nitrogen 14 mg/dL (9-20); Calcium 9.2 mg/dL (8.4-10.2); Carbon Dioxide 22 mmol/L (22-30); Chloride 101 mmol/L (98-107); Glucose 101 mg/dL (74-99); Magnesium 1.8 mg/dL (1.6-2.3); Non-African American GFR(CKD) 80 (>60 ml/min/1.73 sqM); Potassium 4.3 mmol/L (3.5-5.1); Sodium 132 mmol/L (137-145); Total Bilirubin 1.1 mg/dL (0.2-1.3)
[2023-08-22 15:57] LABS: INR 1.1 (<1.2); Partial Thromboplastin Time 31.8 sec (22.0-30.0); Prothrombin Time 11.1 sec (9.0-12.0)
--- NOTE | 2023-08-22 16:35 | XR ---
EXAMINATION TYPE: XR pelvis AP view DATE OF EXAM: 08/22/2023 CLINICAL HISTORY: pain TECHNIQUE: Single view the pelvis is submitted. FINDINGS: No evidence for fracture, dislocation or bony lesion. Joint spaces are mildly narrowed ri ght greater than left.. SI joints appear symmetric. IMPRESSION: 1. No acute fracture or dislocation seen. ICD 10 NO FRACTURE, INITIAL EVALUATION
--- NOTE | 2023-08-22 16:36 | XR ---
EXAMINATION TYPE: XR chest 2V DATE OF EXAM: 08/22/2023 COMPARISON: NONE HISTORY: Shortness of breath TECHNIQUE: Frontal and lateral views of the chest are obtained. FINDINGS: Scattered senescent parenchymal changes noted. Hyperinflation compatible with COPD. No evidence for infiltrate. No evidence for atelectasis. Heart size is stable. Mediastinal structures are stable and grossly unremarkable. No evidence for hilar prominence. Degenerative changes dorsal spine. IMPRESSION: 1. No evidence for acute pulmonary disease.
--- NOTE | 2023-08-22 16:36 | XR ---
EXAMINATION TYPE: XR forearm RT DATE OF EXAM: 08/22/2023 CLINICAL HISTORY: pain TECHNIQUE: Frontal and lateral images of the right forearm are obtained. COMPARISON: None. FINDINGS: There is no acute fracture/dislocation evident. The joint spaces appear within normal limi ts. The overlying soft tissue appears unremarkable. IMPRESSION: There is no acute fracture or dislocation. ICD 10 NO FRACTURE, INITIAL EVALUATION
--- NOTE | 2023-08-22 17:12 | CT ---
EXAMINATION TYPE: CT brain wo con DATE OF EXAM: 08/22/2023 COMPARISON: None HISTORY: weakness and neuro deficit CT DLP: 1193.[address] of the brain was performed. The ventricles, basal cisterns and sulci overlying the cerebral convexities demonstrate mild enlargem ent. There is no evidence for intracranial hemorrhage or sulcal effacement. There is a 4.5 x 2.7 cm arach noid cyst anterior aspect of the right middle cranial fossa. There is decreased attenuation about the periventricular white matter and deep white matter of both c erebral hemispheres, compatible with chronic small vessel ischemia. Differential diagnosis does inclu de demyelination. No mass effects are seen.No midline shift. Osseous calvarium is intact. If symptoms persist consider MRI. IMPRESSION: 1. Age related atrophic and chronic small vessel ischemic change without acute intracranial process s een at this time. 2. Arachnoid cyst as discussed.
--- NOTE | 2023-08-22 17:16 | CT ---
EXAMINATION TYPE: CT lumbar spine wo con DATE OF EXAM: 08/22/2023 5:00 PM COMPARISON: None HISTORY: bilateral leg weakness CT DLP: 1454.6 mGycm Automated exposure control for dose reduction was used. Unenhanced CT of the lumbar spine was performed. Bone and soft tissue window settings are submitted as well as coronal and sagittal reconstructions. L1-L2: Normal disc space height. No disc herniation protrusion or central stenosis. No facet joint arthropathy. No evidence for foraminal encroachment. L2-L3: Mild degenerative disc space narrowing. No evidence for central stenosis or disc herniation. F oramina are patent. Mild ventral spondylosis. L3-L4: Grade 1 anterolisthesis measuring 2 mm L3 on L4. Mild to moderate degenerative disc space narr owing. Moderate posterior disc bulge with effacement of the ventral thecal sac. There is mild central stenosis and bilateral lateral recess stenosis. Mild bilateral foraminal encroachment. L4-L5: Grade 1 anterolisthesis L4 and L5 measuring 2 mm. Mild to moderate degenerative disc space aster rowing. Posterior disc bulge with bilateral lateral recess stenosis and bilateral foraminal encroachm ent. Severe facet joint arthropathy. L5-S1: Mild degenerative disc space narrowing. Associated disc bulge with posterior central disc prot rusion. Mild effacement ventral thecal sac. Suspect right lateral recess stenosis. Mild bilateral for aminal encroachment. IMPRESSION: 1. Multilevel degenerative disc disease. 2. Mild central stenosis at L3-4 bilateral lateral recess stenosis. 3. Bilateral lateral recess stenosis at L4-5.
--- NOTE | 2023-08-22 17:25 | CT ---
EXAMINATION TYPE: CT angio head neck DATE OF EXAM: 08/22/2023 COMPARISON: None HISTORY: weakness and neuro deficit CT DLP: 592.2 mGycm CONTRAST: Performed with IV Contrast, patient injected with 65ml mL of Isovue 370. Combination Contrast CTA cervical carotids and [place] CTA cervical carotids with 3-D recons truction Contrast CTA of the cervical carotids was performed 3-D reconstruction imaging obtained at a separate workstation. Right carotid system: Mild plaque is seen of the right common carotid artery. There is mild plaque a lso noted at the carotid bulb and proximal ICA. No significant diameter reduction. ECA is patent. Right vertebral artery appears unremarkable. Left carotid system: Mild plaque is seen of the left common carotid artery. There is long segment so ft plaque extending 2.3 cm in length. Estimated diameter reduction of. 55%. Also noted at the carotid bulb and proximal ICA.. ECA is patent. Left vertebral artery appears unremarkable. IMPRESSION: 1. Long segment soft plaque proximal left ICA with estimated diameter reduction of 55%. CTA [place] with 3-D reconstruction Contrast CTA of the [place] was performed 3-D reconstruction imaging obtained at a separate workstation. Vertebrobasilar system as well as intracranial portions of the internal carotid arteries and their ma dorinda tributaries are patent. Vascular asymmetry of distal left MCA branches relative to the right. Co rrelate clinically. I do not see evidence for sizable aneurysm or vascular malformation. Please note MRI provides greater sensitivity and specificity. Visualized brain appears grossly unremarkable. IMPRESSION: 1. Vascular asymmetry of distal left MCA branches relative to the right. Correlate clinically. NASCET criteria was used in interpretation of this exam?
[2023-08-22 17:59] LABS: Appearance,Urine Cloudy (Clear); Bacteria,Urine Few /hpf; Bilirubin,Urine Negative (Negative); Blood,Urine Trace (Negative); Color,Urine Light Yellow; Glucose,Urine (UA) Negative (Negative); Hyaline Casts,Urine 1 /lpf (0-2); Ketones,Urine Negative (Negative); Leukocyte Esterase,Urine Small (Negative); Mucus,Urine Rare /hpf; Nitrite,Urine Negative (Negative); PH, Urine 5.5 (5.0-8.0); Protein,Urine Trace (Negative); RBC,Urine 3 /hpf (0-5); Specific Gravity,Urine 1.021 (1.001-1.035); Urobilinogen,Urine <2.0 mg/dL (<2.0); WBC,Urine 25 /hpf (0-5)
[2023-08-22] MEDS ORDERED: NALOXONE 0.4 MG/ML 1 ML VIAL IV PRN (18:42)
[2023-08-22] MEDS ORDERED: metFORMIN 500 MG TAB PO SCH (21:00)
[2023-08-22] MEDS ORDERED: ATORVASTATIN 10 MG TAB PO SCH (21:00)
[2023-08-23] MEDS ORDERED: ATORVASTATIN 80 MG TAB PO STA (00:36)
[2023-08-23] MEDS ORDERED: ASPIRIN 325 MG TAB PO STA (00:36)
--- NOTE | 2023-08-23 00:39 | P.HPIM ---
History of Present Illness H&P Date: 08/22/23 Patient is a 78-year-old male with a PMH of type II DM, hypertension, hyperlipidemia who was brought into the emergency room by EMS for fall and weakness. The history was obtained from the chart as the patient was very confused at the time of interview. Attempted to reach family via phone numbers listed on the chart with no response and full mailbox. The patient who was reportedly previously seen walking normally 2 days ago and does not use any assistive devices reportedly had a fall earlier today from standing home, with resulting right forearm abrasion. The patient had denied experiencing loss of consciousness and that his legs had given out on him. The patient was also noted to have right upper extremity weakness during the interview and reported that this has been ongoing for the past 2-3 weeks. He denied headaches or visual disturbances. Denied chest discomfort, shortness of breath, fever, chills. He does have an extensive smoking history and reports a chronic cough. Patient denied alcohol use. CT angiogram of the head and neck in the emergency room revealed vascular as ymmetry of the distal left MCA relative to the right with no other acute abnormalities. CT brain was unremarkable with CT lumbar spine also unremarkable. EKG revealed sinus tachycardia at 116 bpm. Chest x-ray was unremarkable. Forearm x-ray was unremarkable. Pelvis x-ray was unremarkable. Laboratory evaluation remarkable for leukocytosis of 15.3, hyponatremia with sodium 132, troponin less than 0.012, with UA indeterminate. ED documentation reviewed and case discussed with ED provider. Review of systems: Pertinent positives and negatives as discussed in HPI, a complete review of systems was performed and all other systems are negative. Physical examination: Vital signs reviewed General: non toxic, no distress, appears at stated age, obese Derm: no unusual rashes/lesions, warm Head: atraumatic, normocephalic, symmetric Eyes: EOMI, no lid lag, anicteric sclera, pupils equal round reactive to light ENT: Nose and ears atraumatic Neck: No cervical lymphadenopathy, trachea midline, supple Mouth: no lip lesion, mucus membranes moist Cardiovascular: S1S2 reg, no murmur, positive dorsalis pedis pulse bilateral, no edema Lungs: Bilateral expiratory wheezing appreciated with persistent cough, no accessory muscle use Abdominal: soft, nontender to palpation, no guarding Ext: muscle strength 3 out of 5 in bilateral lower extremities grossly, right upper extremity strength to out of 5, left upper extremity strength 4 out of 5, no gross muscle atrophy, no contractures Neuro: CN II-XI grossly intact, no gross focal neuro deficits Psych: Somewhat slow to respond, oriented to person and place, not oriented to time Assessment: Generalized weakness and confusion, unclear etiology, rule out CVA Indeterminate UA Leukocytosis Hyponatremia Imaging: CT angiogram of the head and neck in the emergency room revealed vascular asymmetry of the distal left MCA relative to the right with no other acute abnormalities. CT brain was unremarkable with CT lumbar spine also unremarkable. EKG revealed sinus tachycardia at 116 bpm. Chest x-ray was unremarkable. Forearm x-ray was unremarkable. Pelvis x-ray was unremarkable. Data Review: Laboratory evaluation remarkable for leukocytosis of 15.3, hyponatremia with sodium 132, troponin less than 0.012, with UA indeterminate. Plan: Initiate aspirin and statin Neurology consulted Fall precautions Neuro checks MRI brain ordered PT and speech consult Echocardiogram Cardiac monitoring Continue ceftriaxone for possible UTI in setting of confusion Continue with IV fluid for hydration 75 mL/hr DVT prophylaxis: Lovenox subq The patient is admitted with an anticipated greater than 2 midnight stay for evaluation of confusion CODE STATUS: Full Code Discussed with: Patient, chart Anticipated discharge place: Home, SNF Past Medical History Past Medical History: Diabetes Mellitus, Hyperlipidemia, Hypertension History of Any Multi-Drug Resistant Organisms: None Reported Past Surgical History: No Surgical Hx Reported Additional Past Surgical History / Comment(s): nose Past Psychological History: No Psychological Hx Reported Smoking Status: Current every day smoker Past Alcohol Use History: None Reported Past Drug Use History: None Reported - Past Family History Father Family Medical History: Unable to Obtain (patient confused) Medications and Allergies Home Medications Medication Instructions Recorded Confirmed Type Simvastatin [Zocor] 20 mg PO HS 03/07/17 08/22/23 History metFORMIN HCL [Glucophage] 1,000 mg PO BID 03/07/17 08/22/23 History Tamsulosin HCl [Flomax] 0.4 mg PO DAILY 07/02/23 08/22/23 History amLODIPine BESYLATE/BENAZEPRIL 1 cap PO DAILY 07/02/23 08/22/23 History [amLODIPine BESYLATE/BENAZEPRIL 5-10 mg] Allergies Allergy/AdvReac Type Severity Reaction Status Date / Time No Known Allergies Allergy Verified 08/22/23 16:25 Physical Exam Vitals: Vital Signs Temp Pulse Pulse Resp BP BP Pulse Ox 08/22/23 20:30 98.7 F 82 16 117/69 98 08/22/23 19:33 96 18 126/68 95 08/22/23 18:13 99 18 122/75 94 L 08/22/23 15:06 128 H 18 162/79 96 08/22/23 14:57 98.7 F 115 H 22 142/70 96 Intake and Output 08/22/23 08/22/23 08/23/23 14:59 22:59 06:59 Other: Voiding Method Urinal Weight 89.811 kg 89.811 kg Results CBC & Chem 7: 08/22/23 15:00 08/22/23 15:00 Labs: Abnormal Lab Results - Last 24 Hours (Table) 08/22/23 08/22/23 08/22/23 Range/Units 14:55 15:00 15:00 WBC 15.3 H (3.8-10.6) k/uL Neutrophils # 13.6 H (1.3-7.7) k/uL Lymphocytes # 0.6 L (1.0-4.8) k/uL APTT 31.8 H (22.0-30.0) sec Sodium (137-145) mmol/L Glucose (74-99) mg/dL POC Glucose (mg/dL) 114 H (70-110) mg/dL Urine Protein (Negative) Urine Blood (Negative) Ur Leukocyte Esterase (Negative) Urine WBC (0-5) /hpf Urine Bacteria (None) /hpf Urine Mucus (None) /hpf 08/22/23 08/22/23 Range/Units 15:00 15:22 WBC (3.8-10.6) k/uL Neutrophils # (1.3-7.7) k/uL Lymphocytes # (1.0-4.8) k/uL APTT (22.0-30.0) sec Sodium 132 L (137-145) mmol/L Glucose 101 H (74-99) mg/dL POC Glucose (mg/dL) (70-110) mg/dL Urine Protein Trace H (Negative) Urine Blood Trace H (Negative) Ur Leukocyte Esterase Small H (Negative) Urine WBC 25 H (0-5) /hpf Urine Bacteria Few H (None) /hpf Urine Mucus Rare H (None) /hpf Thrombosis Risk Factor Assmnt - Choose All That Apply Any of the Below Risk Factors Present?: No Each Risk Factor Represents 3 Points: Age 75 years or older Thrombosis Risk Factor Assessment Total Risk Factor Score: 3 Thrombosis Risk Factor Assessment Level: Moderate Risk
[2023-08-23] MEDS: lisinopriL 10 MG TAB PO SCH (07:58)
[2023-08-23] MEDS: TAMSULOSIN 0.4 MG CAP.ER.24H PO SCH (07:59)
[2023-08-23] MEDS: ASPIRIN 81 MG PO SCH (07:59)
[2023-08-23] MEDS: amLODIPine 5 MG TAB PO SCH (07:59)
[2023-08-23 10:58] LABS: HCT 42.8 % (39.6-50.0); HGB 14.4 d/dL (13.0-17.0); MCH 30.8 pg (27.0-32.0); MCHC 33.6 d/dL (32.0-37.0); MCV 91.5 FL (80.0-97.0); Mean Platelet Volume 10.6 FL (9.5-12.2); NRBC Per 100 WBC 0 X 10*3/uL (0.00-0.01); Platelet Count 184 X 10*3/uL (140-440); RBC 4.68 X 10*6/uL (4.40-5.60); RDW 13.8 % (11.5-14.5); WBC 15.48 X 10*3/uL (4.50-10.00)
[2023-08-23 10:59] LABS: Basophils # (A) 0.03 X 10*3/uL (0.00-0.10); Basophils % (A) 0.2 %; Eosinophils # (A) 0.02 X 10*3/uL (0.04-0.35); Eosinophils % (A) 0.1 %; Lymphocytes # (A) 0.73 X 10*3/uL (0.90-5.00); Lymphocytes % (A) 4.7 %; Monocytes % (A) 7.8 %; Neutrophils # (A) 13.43 X 10*3/uL (1.80-7.70); Neutrophils % (A) 86.7 %
[2023-08-23 11:25] LABS: BUN/Creat Ratio 14.11 Ratio (12.00-20.00); Blood Urea Nitrogen 12.7 mg/dL (9.0-27.0); Calcium 8.5 mg/dL (8.7-10.3); Chloride 105 mmol/L (96-109); Glucose 129 mg/dL (70-110); Sodium 136 mmol/L (135-145)
--- NOTE | 2023-08-23 11:58 | CA ---
Transthoracic Echo Report Name: Magnus De Paz Age: 78 Gender: M : 1945 Exam Date: 08/23/2023 08:25 Exam Location: [place] [facility] Ht (in): 68 Wt (lb): 198 Ordering Physician: Rhiannon Mcadams MD Attending/Referring Phys: Clerk Rating Arlette Rose RDCS Procedure CPT: Indications: possible CVA Cardiac Hx: Technical Quality: Fair Contrast 1: Total Dose (mL): Contrast 2: Total Dose (mL): MEASUREMENTS (Male / Female) Normal Values 2D ECHO LV Diastolic Diameter PLAX 3.6 cm 4.2 - 5.9 / 3.9 - 5.3 cm LV Systolic Diameter PLAX 2.7 cm IVS Diastolic Thickness 1.6 cm 0.6 - 1.0 / 0.6 - 0.9 cm LVPW Diastolic Thickness 1.5 cm 0.6 - 1.0 / 0.6 - 0.9 cm LV Relative Wall Thickness 0.8 RV Internal Dim ED PLAX 4.2 cm LVOT Diameter 1.7 cm LA Volume 48.8 cm??? 18 - 58 / 22 - 52 cm??? M-MODE Aortic Root Diameter MM 3.5 cm LA Systolic Diameter MM 5.4 cm LA Ao Ratio MM 1.5 AV Cusp Separation MM 1.1 cm DOPPLER AV Peak Velocity 160.9 cm/s AV Peak Gradient 10.4 mmHg AV Mean Velocity 129.0 cm/s AV Mean Gradient 7.1 mmHg AV Velocity Time Integral 35.1 cm LVOT Peak Velocity 86.8 cm/s LVOT Peak Gradient 3.0 mmHg LVOT Velocity Time Integral 20.5 cm LVOT Stroke Volume 45.8 cm??? LVOT Stroke Volume Index 22.5 ml/m??? LVOT Cardiac Index 1853.8 cm???/min???m??? AV Area Cont Eq vti 1.3 cm??? AV Area Cont Eq pk 1.2 cm??? MV Area PHT 2.2 cm??? Mitral E Point Velocity 65.6 cm/s Mitral A Point Velocity 116.5 cm/s Mitral E to A Ratio 0.6 MV Deceleration Time 352.1 ms MV E' Velocity 4.1 cm/s Mitral E to MV E' Ratio 15.8 FINDINGS Left Ventricle Moderately increased left ventricular wall thickness. Left ventricular cavity size normal. Normal left ventricular systolic function with no obvious regional wall motion abnormalities. Left ventricular ejection fraction is estimated at 55-60 %. Right Ventricle Right ventricular systolic pressure within normal limits. Moderate right ventricular dilatation. Right Atrium Normal right atrial size. Left Atrium Normal left atrial size. Mitral Valve Structurally normal mitral valve. No mitral stenosis, regurgitation or prolapse. Aortic Valve No aortic valve stenosis or regurgitation. Aortic valve sclerosis. Tricuspid Valve Structurally normal tricuspid valve. Trace to mild tricuspid regurgitation. Pulmonic Valve Trace pulmonic regurgitation. Pericardium No pericardial effusion. Aorta Normal size aortic root and proximal ascending aorta. CONCLUSIONS Technically difficult study. Endocardial margins are not very well seen. Normal LV size and systolic function with [id number] concentric LVH. Aortic valve sclerosis and mitral annular calcification mild mitral and tricuspid regurgitation. No pericardial effusion Previewed by: Dr. Petra Garcia MD (Electronically Signed) Final Date: 23 August 2023 11:58
--- NOTE | 2023-08-23 12:15 | P.CNNES ---
History of Present Illness Consult date: 08/23/23 Requesting physician: Phuc Mccullough Reason for Consult: confusion History of Present Illness: This is a 78-year-old gentleman with history of diabetes, hypertension and hyperlipidemia who presented emergency department after a fall. Some of the history is obtained from medical record that. The patient resides by himself and yesterday in the afternoon he fell and unsure of exact what transpired. He denies any loss of complexes, a tongue bite, urinary bowel incontinence. He denied to ED that he had any focal weakness or any confusion. Normally he has no issues walk-in. He notified the ED team that he fell into a wall and had a small skin tear on the posterior right forearm. Patient denied any history of A. fib. He denies being on antiplatelet at home. Denied any history of stroke. Per the ED team patient did not have any focal weakness and he did the some imaging which shows asymmetry of MCA and the NIH stroke scale was a 0. There is no thrombus on the MCA. Since the patient NIH stroke scale was a 0 and no thrombus and no IV TPA was given since the risk outweighed the benefit as well as no intervention since there is no thrombus. Upon seeing the patient today the nurse stated that she had these weakness of the right upper extremity and unsure when it started. Some other workup in our facility consisted of: Urinalysis seems questionable for urinary tract infection CT of the head is reported as age-related atrophic and chronic small vessel ischemic change without acute intracranial process seen at this time. Arachnoid cyst as discussed. CT angiography of the head and neck was reported as vascular asymmetry of the distal left MCA branches relative to the right. Correlate clinically. Nobody reported it is reported the patient has arachnoid cyst in the right middle cranial fossa measuring between 4.52.7 cm. Review of Systems The pertinent positive and negative as per HPI. Past Medical History Past Medical History: Diabetes Mellitus, Hyperlipidemia, Hypertension History of Any Multi-Drug Resistant Organisms: None Reported Past Surgical History: No Surgical Hx Reported Additional Past Surgical History / Comment(s): nose Past Psychological History: No Psychological Hx Reported Smoking Status: Current every day smoker Past Alcohol Use History: None Reported Past Drug Use History: None Reported - Past Family History Father Family Medical History: Unable to Obtain (patient confused) Medications and Allergies Home Medications Medication Instructions Recorded Confirmed Type Simvastatin [Zocor] 20 mg PO HS 03/07/17 08/22/23 History metFORMIN HCL [Glucophage] 1,000 mg PO BID 03/07/17 08/22/23 History Tamsulosin HCl [Flomax] 0.4 mg PO DAILY 07/02/23 08/22/23 History amLODIPine BESYLATE/BENAZEPRIL 1 cap PO DAILY 07/02/23 08/22/23 History [amLODIPine BESYLATE/BENAZEPRIL 5-10 mg] Allergies Allergy/AdvReac Type Severity Reaction Status Date / Time No Known Allergies Allergy Verified 08/22/23 16:25 Physical Examination - Vital Signs Vital Signs: Vital Signs Temp Pulse Pulse Resp BP BP Pulse Ox 08/23/23 07:02 98.1 F 91 16 108/67 92 L 08/23/23 00:42 98.1 F 74 18 133/69 96 08/22/23 20:30 98.7 F 82 16 117/69 98 08/22/23 19:33 96 18 126/68 95 08/22/23 18:13 99 18 122/75 94 L 08/22/23 15:06 128 H 18 162/79 96 08/22/23 14:57 98.7 F 115 H 22 142/70 96 Intake and Output 08/22/23 08/23/23 08/23/23 22:59 06:59 14:59 Other: Voiding Method Urinal # Voids 4 Weight 89.811 kg GENERAL: The patient is sitting in a recliner chair and is not in acute dis tress. NEUROLOGICAL: Higher mental function: The patient is awake, alert, oriented to self, place and time. Patient is following commands. No aphasia and no neglect. Cranial nerves: The pupils are round, equal and reactive to light Visual cherry are full to confrontation throughout. Extraocular movement is intact no nystagmus is noted. Facial sensation is normal to touch throughout. Has mild right nasolabial flattening. Hearing is mildly to moderately decreased bilaterally to hand rub. Tongue is midline and moved [id number] without any difficulty. No dysarthria is noted. Motor: The strength is right proximal upper extremity is 3 while distally is 2-3 mostly with extensors. Right lower is 4+. Otherwise left side is 5 over 5 throughout. Decrease tone over the right upper extremity. Cerebellum: Somewhat limited over the right upper extremity since weakness but normal finger to nose. . Sensation: Sensation is normal to touch throughout. Reflexes (right/left): 2+ throughout. Plantars are mute bilaterally. Results - Laboratory Findings CBC and BMP: 08/23/23 06:30 08/23/23 06:30 Abnormal Lab Findings: Abnormal Labs 08/22/23 08/22/23 08/22/23 14:55 15:00 15:00 WBC 15.3 H Neutrophils # 13.6 H Lymphocytes # 0.6 L Monocytes # Eosinophils # APTT 31.8 H Sodium Carbon Dioxide Glucose POC Glucose (mg/dL) 114 H Calcium Urine Protein Urine Blood Ur Leukocyte Esterase Urine WBC Urine Bacteria Urine Mucus 08/22/23 08/22/23 08/23/23 15:00 15:22 06:30 WBC 15.48 H Neutrophils # 13.43 H Lymphocytes # 0.73 L Monocytes # 1.20 H Eosinophils # 0.02 L APTT Sodium 132 L Carbon Dioxide Glucose 101 H POC Glucose (mg/dL) Calcium Urine Protein Trace H Urine Blood Trace H Ur Leukocyte Esterase Small H Urine WBC 25 H Urine Bacteria Few H Urine Mucus Rare H 08/23/23 06:30 WBC Neutrophils # Lymphocytes # Monocytes # Eosinophils # APTT Sodium Carbon Dioxide 21.0 L Glucose 129 H POC Glucose (mg/dL) Calcium 8.5 L Urine Protein Urine Blood Ur Leukocyte Esterase Urine WBC Urine Bacteria Urine Mucus Assessment and Plan Assessment: This is a 78-year-old gentleman with history of diabetes, hypertension who presented emergency department on 08/22/2023 after a fall at home. In the ED was felt that the patient had NIH stroke scale was 0 but had asymmetry of MCA on imaging but there is no thrombus. No IV TPA since no deficits on presentation and risk outweigh the benefit. Also no intervention since no thrombus. But today per nurse had right upper extremity weakness and unsure last normal. Likely acute ischemic stroke with right upper extremity weakness more than the right lower extremity weakness and the mild right nasolabial flattening): IV TPA since unknown last normal Diabetes Hypertension Lactic acidosis over the right middle cranial fossa. Plan: MRI of the brain with and without is ordered and is pending, 2-D echo was ordered I ordered lipid panel, hemoglobin A1c, TSH. Patient was started on aspirin 81 mg daily by ED team. I also start the patient on Plavix 75 mg daily. He was on Lipitor 10 mg daily at bedtime by ED team and I increase it to 40 mg daily at bedtime for secondary stroke prophylaxis. Continue Neuro checks Cardiac monitoring PT OT and PERSONAL LINES UNDERWRITER are consulted We'll defer the rest of the medical management to primary team For DVT prophylaxis I started the patient on subcu heparin 5000 that every 12 hours The plan was discussed with the patient and his nurse. Thank you for the consultation Time with Patient: Greater than 30
[2023-08-23] MEDS: CLOPIDOGREL 75 MG TAB PO SCH (12:27)
--- NOTE | 2023-08-23 14:28 | P.PN ---
Subjective Progress Note Date: 08/23/23 Patient is a 78-year-old male with a PMH of type II DM, hypertension, hyperlipidemia who was brought into the emergency room by EMS for fall and weakness. The history was obtained from the chart as the patient was very confused at the time of interview. Attempted to reach family via phone numbers listed on the chart with no response and full mailbox. The patient who was reportedly previously seen walking normally 2 days ago and does not use any assistive devices reportedly had a fall earlier today from standing home, with resulting right forearm abrasion. The patient had denied experiencing loss of consciousness and that his legs had given out on him. The patient was also noted to have right upper extremity weakness during the interview and reported that this has been ongoing for the past 2-3 weeks. He denied headaches or visual disturbances. Denied chest discomfort, shortness of breath, fever, chills. He does have an extensive smoking history and reports a chronic cough. Patient den ied alcohol use. CT angiogram of the head and neck in the emergency room revealed vascular asymmetry of the distal left MCA relative to the right with no other acute abnormalities. CT brain was unremarkable with CT lumbar spine also unremarkable. EKG revealed sinus tachycardia at 116 bpm. Chest x-ray was unremarkable. Forearm x-ray was unremarkable. Pelvis x-ray was unremarkable. Laboratory evaluation remarkable for leukocytosis of 15.3, hyponatremia with sodium 132, troponin less than 0.012, with UA indeterminate. 08/23 Patient was seen and examined. Pleasantly confused. Still with RUE weakness. Denies any dysuria.CBC shows WBC count of 15.48. BMP shows bicarb of 21, glucose 129, Ca 8.5. Echo shows EF 55-60% with LV thickness. Neurology consulted, recommends MRI brain, A1c, Lipid panel, TSH. General: non toxic, no distress, appears at stated age, obese Derm: no unusual rashes/lesions, warm Head: atraumatic, normocephalic, symmetric Eyes: EOMI, no lid lag, anicteric sclera ENT: Nose and ears atraumatic Neck: No cervical lymphadenopathy, trachea midline, supple Cardiovascular: S1S2 reg, no murmur, no edema Lungs: Bilateral expiratory wheezing appreciated with persistent cough, no accessory muscle use Ext: muscle strength 3 out of 5 in bilateral lower extremities grossly, right upper extremity strength to out of 5, left upper extremity strength 4 out of 5, no gross muscle atrophy, no contractures Psych: Somewhat slow to respond, oriented to person and place, not oriented to time Generalized weakness and confusion, RUE weakness, unclear etiology, rule out CVA Sepsis related to UTI Chronic conditions: type II DM, hypertension, hyperlipidemia Based on my assessment of this patient, this patient meets a high complexity level of care. Patient has an acute diagnosis of Acute metabolic encephalopathy with RLE weakness that poses a threat to life or bodily function. Generalized weakness and confusion, RUE weakness, unclear etiology, rule out CVA: MRI brain. A1c, Lipid panel. ASA 81 mg PO QD, Lipitor 40 mg PO QHS. Plavix 75 mg PO QD. Sepsis related to UTI: Rocephin 2g IV QD. Follow UCx, BCx. Telemetry monitoring. I have reviewed the following call center support consultant notes: Neurology note. I have reviewed the results of the following tests: CBC, BMP, Echo. I have ordered the following tests: Agree with MRI brain, A1c, Lipid panel, TSH. I have discussed the care of this patient with the following independent historian: I have independently interpreted the following test below: I have discussed the management of this patient with the following physician: Objective - Vital Signs Vital signs: Vital Signs Temp 98.1 F 08/23/23 07:02 Pulse 91 08/23/23 07:02 Resp 16 08/23/23 07:02 BP 108/67 08/23/23 07:02 Pulse Ox 92 L 08/23/23 07:02 FiO2 Intake & Output 08/22/23 08/23/23 08/23/23 18:59 06:59 18:59 Weight 89.811 kg 89.811 kg Other: Voiding Method Urinal # Voids 4 - Labs CBC & Chem 7: 08/23/23 06:30 08/23/23 06:30 Labs: Abnormal Lab Results - Last 24 Hours (Table) 08/22/23 08/22/23 08/22/23 Range/Units 14:55 15:00 15:00 WBC 15.3 H (3.8-10.6) k/uL Neutrophils # 13.6 H (1.3-7.7) k/uL Lymphocytes # 0.6 L (1.0-4.8) k/uL Monocytes # (0.20-1.00) X 10*3/uL Eosinophils # (0.04-0.35) X 10*3/uL APTT 31.8 H (22.0-30.0) sec Sodium (137-145) mmol/L Carbon Dioxide (21.6-31.8) mmol/L Glucose (74-99) mg/dL POC Glucose (mg/dL) 114 H (70-110) mg/dL Calcium (8.7-10.3) mg/dL Urine Protein (Negative) Urine Blood (Negative) Ur Leukocyte Esterase (Negative) Urine WBC (0-5) /hpf Urine Bacteria (None) /hpf Urine Mucus (None) /hpf 08/22/23 08/22/23 08/23/23 Range/Units 15:00 15:22 06:30 WBC 15.48 H (3.8-10.6) k/uL Neutrophils # 13.43 H (1.3-7.7) k/uL Lymphocytes # 0.73 L (1.0-4.8) k/uL Monocytes # 1.20 H (0.20-1.00) X 10*3/uL Eosinophils # 0.02 L (0.04-0.35) X 10*3/uL APTT (22.0-30.0) sec Sodium 132 L (137-145) mmol/L Carbon Dioxide (21.6-31.8) mmol/L Glucose 101 H (74-99) mg/dL POC Glucose (mg/dL) (70-110) mg/dL Calcium (8.7-10.3) mg/dL Urine Protein Trace H (Negative) Urine Blood Trace H (Negative) Ur Leukocyte Esterase Small H (Negative) Urine WBC 25 H (0-5) /hpf Urine Bacteria Few H (None) /hpf Urine Mucus Rare H (None) /hpf 08/23/23 Range/Units 06:30 WBC (3.8-10.6) k/uL Neutrophils # (1.3-7.7) k/uL Lymphocytes # (1.0-4.8) k/uL Monocytes # (0.20-1.00) X 10*3/uL Eosinophils # (0.04-0.35) X 10*3/uL APTT (22.0-30.0) sec Sodium (137-145) mmol/L Carbon Dioxide 21.0 L (21.6-31.8) mmol/L Glucose 129 H (74-99) mg/dL POC Glucose (mg/dL) (70-110) mg/dL Calcium 8.5 L (8.7-10.3) mg/dL Urine Protein (Negative) Urine Blood (Negative) Ur Leukocyte Esterase (Negative) Urine WBC (0-5) /hpf Urine Bacteria (None) /hpf Urine Mucus (None) /hpf
[2023-08-23] MEDS: ATORVASTATIN 40 MG TAB PO SCH (20:32)
[2023-08-23] MEDS: HEPARIN SODIUM,PORCINE 5,000 UNIT/ML 1 ML VIAL SQ SCH (20:32)
[2023-08-23] MEDS ORDERED: ATORVASTATIN 80 MG TAB PO SCH (21:00)
[2023-08-24] MEDS: HEPARIN SODIUM,PORCINE 5,000 UNIT/ML 1 ML VIAL SQ SCH ×2 (09:24→22:02)
[2023-08-24] MEDS: ASPIRIN 81 MG PO SCH (09:25)
[2023-08-24] MEDS: amLODIPine 5 MG TAB PO SCH (09:25)
[2023-08-24] MEDS: CLOPIDOGREL 75 MG TAB PO SCH (09:25)
[2023-08-24] MEDS: lisinopriL 10 MG TAB PO SCH (09:25)
[2023-08-24] MEDS: TAMSULOSIN 0.4 MG CAP.ER.24H PO SCH (09:25)
[2023-08-24] MEDS ORDERED: VANCOMYCIN IV PER PHARMACY 1 EACH MISC MISCELLANE PRN (09:42)
[2023-08-24] MEDS ORDERED: VANCOMYCIN 1,500 MG in SODIUM CHLORIDE 0.9% 500 ML 500 ML IVPB SCH (10:00)
--- NOTE | 2023-08-24 12:35 | MR ---
EXAMINATION TYPE: MR brain wo/w con DATE OF EXAM: 08/24/2023 COMPARISON: None HISTORY: Confusion TECHNIQUE: Multiplanar, multisequence images of the brain and brainstem is performed without and with IV contras t, utilizing 9 mL intravenous Gadavist . FINDINGS: The ventricles, basal cisterns and sulci over convexities are moderately enlarged consistent with mod erate generalized atrophy but appropriate for the patient's age. There is a subarachnoid cyst in the right temporal fossa. There is no mass effect or shift of the midline structures. Based on diffusion-weighted imaging, there are multiple small focal areas of diffusion restriction in the cortex of the left frontal and parietal lobes consistent with acute cortical infarcts likely sec ondary to shower emboli. Following contrast administration, there is no pathological enhancement throughout the brain parenchy ma The posterior fossa including the brainstem, fourth ventricle and cerebellar pontine angles appear no rmal. The intraorbital contents appear normal and symmetric. Visualized paranasal sinuses and mastoid air cells are well aerated. IMPRESSION: Multiple small acute cortical infarcts scattered throughout the left cerebral hemisphere involving th e frontal and parietal lobes. The findings are consistent with shower emboli. .
--- NOTE | 2023-08-24 14:39 | P.PN ---
Subjective Progress Note Date: 08/24/23 Patient is a 78-year-old male with a PMH of type II DM, hypertension, hyperlipidemia who was brought into the emergency room by EMS for fall and weakness. The history was obtained from the chart as the patient was very confused at the time of interview. Attempted to reach family via phone numbers listed on the chart with no response and full mailbox. The patient who was reportedly previously seen walking normally 2 days ago and does not use any assistive devices reportedly had a fall earlier today from standing home, with resulting right forearm abrasion. The patient had denied experiencing loss of consciousness and that his legs had given out on him. The patient was also noted to have right upper extremity weakness during the interview and reported that this has been ongoing for the past 2-3 weeks. He denied headaches or visual disturbances. Denied chest discomfort, shortness of breath, fever, chills. He does have an extensive smoking history and reports a chronic cough. Patient den ied alcohol use. CT angiogram of the head and neck in the emergency room revealed vascular asymmetry of the distal left MCA relative to the right with no other acute abnormalities. CT brain was unremarkable with CT lumbar spine also unremarkable. EKG revealed sinus tachycardia at 116 bpm. Chest x-ray was unremarkable. Forearm x-ray was unremarkable. Pelvis x-ray was unremarkable. Laboratory evaluation remarkable for leukocytosis of 15.3, hyponatremia with sodium 132, troponin less than 0.012, with UA indeterminate. 08/23 Patient was seen and examined. Pleasantly confused. Still with RUE weakness. Denies any dysuria.CBC shows WBC count of 15.48. BMP shows bicarb of 21, glucose 129, Ca 8.5. Echo shows EF 55-60% with LV thickness. Neurology consulted, recommends MRI brain, A1c, Lipid panel, TSH. 08/24 Patient was seen and examined. Clinical condition unchanged. MRI brain shows multiple small acute cortical infarcts scattered throughout the left cerebral hemisphere. BCx + staph epi x 2, patient is switched to Vancomycin dosed per pharmacy. Urine culture positive for gram-negative bacilli. Cardiology will be consulted for possible AIDEE and embolic workup. General: non toxic, no distress, appears at stated age, obese Derm: no unusual rashes/lesions, warm Head: atraumatic, normocephalic, symmetric Eyes: EOMI, no lid lag, anicteric sclera ENT: Nose and ears atraumatic Neck: No cervical lymphadenopathy, trachea midline, supple Cardiovascular: S1S2 reg, no murmur, no edema Lungs: Bilateral expiratory wheezing appreciated with persistent cough, no accessory muscle use Ext: muscle strength 3 out of 5 in bilateral lower extremities grossly, right upper extremity strength to out of 5, left upper extremity strength 4 out of 5, no gross muscle atrophy, no contractures Psych: Somewhat slow to respond, oriented to person and place, not oriented to time Embolic CVA Gram + bacteremia Sepsis related to UTI Chronic conditions: type II DM, hypertension, hyperlipidemia Based on my assessment of this patient, this patient meets a high complexity level of care. Patient has an acute diagnosis of Acute metabolic encephalopathy with RLE weakness that poses a threat to life or bodily function. Embolic CVA: MRI brain as above. A1c, Lipid panel. ASA 81 mg PO QD, Lipitor 40 mg PO QHS. Plavix 75 mg PO QD. Gram-positive bacteremia: Possible contaminant. Start Vancomycin and repeat BCx. Sepsis related to UTI: Rocephin switched to Vancomycin on 08/24. UCx gram neg bacilli, BCx + staph epi x 2. Telemetry monitoring. I have reviewed the following executive talent acquisition consultant notes: I have reviewed the results of the following tests: MRI brain. BCx. UCx I have ordered the following tests: Agree with A1c, Lipid panel, TSH. I have discussed the care of this patient with the following independent historian: I have independently interpreted the following test below: I have discussed the management of this patient with the following physician: Objective - Vital Signs Vital signs: Vital Signs Temp 97.5 F L 08/24/23 07:25 Pulse 60 08/24/23 07:25 Resp 16 08/24/23 07:25 BP 175/77 08/24/23 07:25 Pulse Ox 98 08/24/23 07:25 FiO2 Intake & Output 08/23/23 08/24/23 08/24/23 18:59 06:59 18:59 Intake Total 200 Output Total 1000 1000 Balance 200 -1000 -1000 Intake: Intake, IV Titration 200 Amount Sodium Chloride 0.9% 1, 150 000 ml @ 75 mls/hr IV . [id number] STA Rx#:[id number] cefTRIAXone 2 gm In 50 Sodium Chloride 0.9% 50 ml @ 100 mls/hr IVPB Q24HR RAY Rx#:[id number] Output: Urine 1000 1000 Other: Voiding Method Urinal # Bowel Movements 1 - Labs CBC & Chem 7: 08/23/23 06:30 08/23/23 06:30 Labs: Microbiology - Last 24 Hours (Table) 08/22/23 15:22 Urine Culture - Preliminary Urine,Clean Catch Gram Neg Bacilli 08/22/23 18:35 Blood Culture Gram Stain - Preliminary Blood 08/22/23 18:35 Blood Culture Gram Stain - Preliminary Blood
--- NOTE | 2023-08-24 15:01 | P.PN ---
Subjective Progress Note Date: 08/24/23 The patient is sitting in a recliner chair and feels about the same. Denies worsening of his neurological condition. Objective - Vital Signs Vital signs: Vital Signs Temp 98.1 F 08/24/23 12:34 Pulse 71 08/24/23 12:34 Resp 17 08/24/23 12:34 BP 147/74 08/24/23 12:34 Pulse Ox 96 08/24/23 12:34 FiO2 Intake & Output 08/23/23 08/24/23 08/24/23 18:59 06:59 18:59 Intake Total 200 Output Total 1000 1000 Balance 200 -1000 -1000 Intake: Intake, IV Titration 200 Amount Sodium Chloride 0.9% 1, 150 000 ml @ 75 mls/hr IV . [id number] STA Rx#:[id number] cefTRIAXone 2 gm In 50 Sodium Chloride 0.9% 50 ml @ 100 mls/hr IVPB Q24HR RAY Rx#:[id number] Output: Urine 1000 1000 Other: Voiding Method Urinal # Bowel Movements 1 - Exam GENERAL: The patient is sitting in a recliner chair and is not in acute distress. NEUROLOGICAL: Higher mental function: The patient is awake, alert, oriented to self, place and time. Patient is following commands. No aphasia and no neglect. Cranial nerves: The pupils are round, equal and reactive to light Visual cherry are full to confrontation throughout. Extraocular movement is intact no nystagmus is noted. Facial sensation is normal to touch throughout. Has mild right nasolabial flattening. Hearing is mildly to moderately decreased bilaterally to hand rub. Tongue is midline and moved [id number] without any difficulty. No dysarthria is noted. Motor: The strength is right proximal upper extremity is 3 while distally is 2-3 mostly with extensors. Right lower is 4+. Otherwise left side is 5 over 5 throughout. Decrease tone over the right upper extremity. Cerebellum: Somewhat limited over the right upper extremity since weakness but normal finger to nose. . Sensation: Sensation is normal to touch throughout. Reflexes (right/left): 2+ throughout. Plantars are mute bilaterally. Some other workup in our facility consisted of: Urinalysis seems questionable for urinary tract infection CT of the head is reported as age-related atrophic and chronic small vessel ischemic change without acute intracranial process seen at this time. Arachnoid cyst as discussed. CT angiography of the head and neck was reported as vascular asymmetry of the distal left MCA branches relative to the right. Correlate clinically. Nobody reported it is reported the patient has arachnoid cyst in the right middle cranial fossa measuring between 4.52.7 cm. 2D echo: It is reported as technically difficult study. Endocardial margins are not very well seen. Normal left ventricular size and systolic function with mild to moderate concentric left ventricular hypertrophy. Aortic valve sclerosis and mitral annular calcification and mild mitral and tricuspid regurgitation. No pericardial effusion - Labs CBC & Chem 7: 08/23/23 06:30 08/23/23 06:30 Labs: Microbiology - Last 24 Hours (Table) 08/22/23 15:22 Urine Culture - Preliminary Urine,Clean Catch Gram Neg Bacilli 08/22/23 18:35 Blood Culture Gram Stain - Preliminary Blood 08/22/23 18:35 Blood Culture Gram Stain - Preliminary Blood Assessment and Plan Assessment: This is a 78-year-old gentleman with history of diabetes, hypertension who presented emergency department on 08/22/2023 after a fall at home. In the ED was felt that the patient had NIH stroke scale was 0 but had asymmetry of MCA on imaging but there is no thrombus. No IV TPA since no deficits on presentation and risk outweigh the benefit. Also no intervention since no thrombus. But today per nurse had right upper extremity weakness and unsure last normal. Likely acute ischemic stroke with right upper extremity weakness more than the right lower extremity weakness and the mild right nasolabial flattening): IV TPA since unknown last normal Diabetes Hypertension Lactic acidosis over the right middle cranial fossa. Plan: MRI of the brain with and without is pending. Lipid panel, hemoglobin A1c, TSH: pending. Patient was started on aspirin 81 mg daily and Plavix 75mg daily (both new during this admission). Continue Lipitor 40 mg daily at bedtime for secondary stroke prophylaxis. Continue Neuro checks Cardiac monitoring PT OT and RUBBER TILE FLOOR LAYER are consulted We'll defer the rest of the medical management to primary team For DVT prophylaxis: Continue subcu heparin 5000 that every 12 hours The plan was discussed with the patient and primary attending. Time with Patient: Less than 30
[2023-08-24] MEDS: ATORVASTATIN 40 MG TAB PO SCH (22:02)
[2023-08-25] MEDS: VANCOMYCIN 1,500 MG in SODIUM CHLORIDE 0.9% 500 ML 500 ML IVPB SCH ×2 (04:12→20:30)
[2023-08-25] MEDS: HEPARIN SODIUM,PORCINE 5,000 UNIT/ML 1 ML VIAL SQ SCH ×3 (07:36→21:14)
[2023-08-25] MEDS: ASPIRIN 81 MG PO SCH ×2 (07:36→07:42)
[2023-08-25] MEDS: TAMSULOSIN 0.4 MG CAP.ER.24H PO SCH (07:41)
[2023-08-25] MEDS: CLOPIDOGREL 75 MG TAB PO SCH (07:41)
[2023-08-25] MEDS: lisinopriL 10 MG TAB PO SCH ×2 (07:42→21:14)
[2023-08-25] MEDS: amLODIPine 5 MG TAB PO SCH (07:42)
[2023-08-25] MEDS: SODIUM CHLORIDE 0.9% 1,000 ML IV SCH ×2 (09:15→09:35)
[2023-08-25 09:22] LABS: Glucose,Whole Blood 117 mg/dL (70-110)
--- NOTE | 2023-08-25 12:10 | P.PN ---
Subjective Progress Note Date: 08/25/23 Patient is a 78-year-old male with a PMH of type II DM, hypertension, hyperlipidemia who was brought into the emergency room by EMS for fall and weakness. The history was obtained from the chart as the patient was very confused at the time of interview. Attempted to reach family via phone numbers listed on the chart with no response and full mailbox. The patient who was reportedly previously seen walking normally 2 days ago and does not use any assistive devices reportedly had a fall earlier today from standing home, with resulting right forearm abrasion. The patient had denied experiencing loss of consciousness and that his legs had given out on him. The patient was also noted to have right upper extremity weakness during the interview and reported that this has been ongoing for the past 2-3 weeks. He denied headaches or visual disturbances. Denied chest discomfort, shortness of breath, fever, chills. He does have an extensive smoking history and reports a chronic cough. Patient den ied alcohol use. CT angiogram of the head and neck in the emergency room revealed vascular asymmetry of the distal left MCA relative to the right with no other acute abnormalities. CT brain was unremarkable with CT lumbar spine also unremarkable. EKG revealed sinus tachycardia at 116 bpm. Chest x-ray was unremarkable. Forearm x-ray was unremarkable. Pelvis x-ray was unremarkable. Laboratory evaluation remarkable for leukocytosis of 15.3, hyponatremia with sodium 132, troponin less than 0.012, with UA indeterminate. 08/23 Patient was seen and examined. Pleasantly confused. Still with RUE weakness. Denies any dysuria.CBC shows WBC count of 15.48. BMP shows bicarb of 21, glucose 129, Ca 8.5. Echo shows EF 55-60% with LV thickness. Neurology consulted, recommends MRI brain, A1c, Lipid panel, TSH. 08/24 Patient was seen and examined. Clinical condition unchanged. MRI brain shows multiple small acute cortical infarcts scattered throughout the left cerebral hemisphere. BCx + staph epi x 2, patient is switched to Vancomycin dosed per pharmacy. Urine culture positive for gram-negative bacilli. Cardiology will be consulted for possible AIDEE and embolic workup. 08/25 Patient was seen and examined. He reports improvement in his RUE weakness. Plans for AIDEE and Loop recorder tomorrow. BCx + coag negative staph treated with Vancomycin. UCX + gram negative bacilli treated with Rocephin. Discussed with Dr. Anderson. General: non toxic, no distress, appears at stated age, obese Derm: no unusual rashes/lesions, warm Head: atraumatic, normocephalic, symmetric Eyes: EOMI, no lid lag, anicteric sclera ENT: Nose and ears atraumatic Neck: No cervical lymphadenopathy, trachea midline, supple Cardiovascular: S1S2 reg, no murmur, no edema Lungs: Bilateral expiratory wheezing appreciated with persistent cough, no accessory muscle use Ext: muscle strength 3 out of 5 in bilateral lower extremities grossly, right upper extremity strength to out of 5, left upper extremity strength 4 out of 5, no gross muscle atrophy, no contractures Psych: Somewhat slow to respond, oriented to person and place, not oriented to time Embolic CVA Gram + bacteremia Sepsis related to UTI Chronic conditions: type II DM, hypertension, hyperlipidemia Based on my assessment of this patient, this patient meets a high complexity level of care. Patient has an acute diagnosis of Acute metabolic encephalopathy with RLE weakness that poses a threat to life or bodily function. Embolic CVA: MRI brain as above. A1c, Lipid panel. ASA 81 mg PO QD, Lipitor 40 mg PO QHS. Plavix 75 mg PO QD. Cardiology consulted for AIDEE and Loop recorder tomorrow. Gram-positive bacteremia: Possible contaminant. Continue Vancomycin and follow repeat BCx. Sepsis related to UTI: Rocephin added back today for gram negative coverage. Vancomycin on 08/24. UCx gram neg bacilli, BCx + staph epi x 2. Telemetry monitoring. I have reviewed the following project management consultant notes: I have reviewed the results of the following tests: BCx. UCx I have ordered the following tests: Agree with A1c, Lipid panel, TSH. Agree with AIDEE. I have discussed the care of this patient with the following independent historian: I have independently interpreted the following test below: I have discussed the management of this patient with the following physician: Objective - Vital Signs Vital signs: Vital Signs Temp 96.9 F L 08/25/23 07:39 Pulse 84 08/25/23 07:39 Resp 19 08/25/23 07:39 BP 135/85 08/25/23 07:39 Pulse Ox 99 08/25/23 08:05 FiO2 Intake & Output 08/24/23 08/25/23 08/25/23 18:59 06:59 18:59 Intake Total 100 Output Total 1000 850 Balance -900 -850 Intake: Oral 100 Output: Urine 1000 850 Other: Voiding Method Urinal Urinal Urinal - Labs CBC & Chem 7: 08/23/23 06:30 08/23/23 06:30 Labs: Abnormal Lab Results - Last 24 Hours (Table) 08/25/23 Range/Units 09:19 POC Glucose (mg/dL) 117 H (70-110) mg/dL Microbiology - Last 24 Hours (Table) 08/22/23 18:35 Blood Culture Gram Stain - Final Blood Blood Culture - Final Coagulase Negative Staph Coagulase Negative Staph#2 08/22/23 18:35 Blood Culture Gram Stain - Final Blood Blood Culture - Final Coagulase Negative Staph Coagulase Negative Staph#2 08/22/23 15:22 Urine Culture - Preliminary Urine,Clean Catch Gram Neg Bacilli
--- NOTE | 2023-08-25 12:19 | P.PN ---
Subjective Progress Note Date: 08/25/23 I am following-up with patient and he feels he is about the same. Denies any worsening of his symptoms. Objective - Vital Signs Vital signs: Vital Signs Temp 96.9 F L 08/25/23 07:39 Pulse 84 08/25/23 07:39 Resp 19 08/25/23 07:39 BP 135/85 08/25/23 07:39 Pulse Ox 99 08/25/23 08:05 FiO2 Intake & Output 08/24/23 08/25/23 08/25/23 18:59 06:59 18:59 Intake Total 100 Output Total 1000 850 Balance -900 -850 Intake: Oral 100 Output: Urine 1000 850 Other: Voiding Method Urinal Urinal Urinal - Exam GENERAL: The patient is sitting in a recliner chair and is not in acute distress. NEUROLOGICAL: Higher mental function: The patient is awake, alert, oriented to self, place and time. Patient is following commands. No aphasia and no neglect. Cranial nerves: The pupils are round, equal and reactive to light Visual cherry are full to confrontation throughout. Extraocular movement is intact no nystagmus is noted. Facial sensation is normal to touch throughout. Has mild right nasolabial flattening. Hearing is mildly to moderately decreased bilaterally to hand rub. Tongue is midline and moved [id number] without any difficulty. No dysarthria is noted. Motor: The strength is right proximal upper extremity is 3 while distally is 2-3 mostly with extensors. Right lower is 4+. Otherwise left side is 5 over 5 throughout. Decrease tone over the right upper extremity. Cerebellum: Somewhat limited over the right upper extremity since weakness but normal finger to nose. . Sensation: Sensation is normal to touch throughout. Reflexes (right/left): 2+ throughout. Plantars are mute bilaterally. Some other workup in our facility consisted of: Urinalysis seems questionable for urinary tract infection CT of the head is reported as age-related atrophic and chronic small vessel ischemic change without acute intracranial process seen at this time. Arachnoid cyst as discussed. CT angiography of the head and neck was reported as vascular asymmetry of the distal left MCA branches relative to the right. Correlate clinically. Nobody reported it is reported the patient has arachnoid cyst in the right middle cranial fossa measuring between 4.52.7 cm. 2D echo: It is reported as technically difficult study. Endocardial margins are not very well seen. Normal left ventricular size and systolic function with mild to moderate concentric left ventricular hypertrophy. Aortic valve sclerosis and mitral annular calcification and mild mitral and tricuspid regurgitation. No pericardial effusion. MRI Brain: It is reported as multiple small acute cortical infarcts scattered throughout the left cerebral hemisphere involving the frontal and parietal lobes. This finding are consistent with the shower emboli. I also felt also involving the left temporal occipital and addition. - Labs CBC & Chem 7: 08/23/23 06:30 08/23/23 06:30 Labs: Abnormal Lab Results - Last 24 Hours (Table) 08/25/23 Range/Units 09:19 POC Glucose (mg/dL) 117 H (70-110) mg/dL Microbiology - Last 24 Hours (Table) 08/22/23 18:35 Blood Culture Gram Stain - Final Blood Blood Culture - Final Coagulase Negative Staph Coagulase Negative Staph#2 08/22/23 18:35 Blood Culture Gram Stain - Final Blood Blood Culture - Final Coagulase Negative Staph Coagulase Negative Staph#2 08/22/23 15:22 Urine Culture - Preliminary Urine,Clean Catch Gram Neg Bacilli Assessment and Plan Assessment: This is a 78-year-old gentleman with history of diabetes, hypertension who presented emergency department on 08/22/2023 after a fall at home. In the ED was felt that the patient had NIH stroke scale was 0 but had asymmetry of MCA on imaging but there is no thrombus. No IV TPA since no deficits on presentation and risk outweigh the benefit. Also no intervention since no thrombus. But today per nurse had right upper extremity weakness and unsure last normal. Acute ischemic stroke (scattered small foci over the left fronto/parietal as w ell temporal/occipital region and largest foci over the frontal. symptoms right upper extremity weakness more than the right lower extremity weakness and the mild right nasolabial flattening. : IV TPA since unknown last normal. Etiology seems emblic in nature. Left ICA of 55% stenosis. Vascular asymmetry of distal left MCA on right. Diabetes Hypertension Arachnoid cyst over the right middle cranial fossa on CT Plan: Ordered MRA head and neck. Regarding vascular asymmetry on CTA for left MCA. There was no thrombus noted and in ED he had NIH stroke scale of 0 per ED team so no intervention. Will pursue with MRA for further evaluation. I consulted vascular surgery team for left ICA stenosis reported as 55% on CTA. Will obtain MRA neck. Pending Lipid panel, hemoglobin A1c, TSH. Patient was started on aspirin 81 mg daily and Plavix 75mg daily (both new during this admission). Continue Lipitor 40 mg daily at bedtime for secondary stroke prophylaxis. Continue Neuro checks Cardiac monitoring. Recommend a transesophageal echocardiogram and if negative recommend an event monitor for 30 days. PT OT and BINGO CALLER are consulted We'll defer the rest of the medical management to primary team For DVT prophylaxis: Continue subcu heparin 5000 that every 12 hours The plan was discussed with the patient and primary attending. Dr. Conroy will start neurology service tomorrow A.M. Time with Patient: Less than 30
--- NOTE | 2023-08-25 15:57 | P.CRDCN ---
History of Present Illness Consult date: 08/25/23 Reason for Consult (text): Assistance with evaluation for stroke etiology History of present illness: This is Gera Hammond NP, I'm dictating on behalf of Dr. North's H&P and A&P The patient was interviewed and examined. HPI: Patient is a 78-year-old male with a past medical history includes diabetes mellitus, hyperlipidemia, and hypertension who presents to the hospital post fall. It is reported the patient fell at home and had a witnessed fall. Patient reports that his legs just gave out and he was unable to support himself. Patient was noted to be confused in the emergency department. Family reports the patient is normally able to ambulate. Patient had multiple imaging studies done which were negative for any acute process or fracture. Brain CT was negative for obvious stroke, however MRI was recommended. The patient has continued to remain weak in his bilateral lower extremities with confusion noted. An MRI of the brain was ordered, which did demonstrate multiple small acute cortical infarct scattered throughout the left cerebral hemisphere involving the frontal parietal lobes consistent with shower emboli. Cardiology was consulted to assist in finding the etiology of the emboli. Today the patient reports that he's feeling okay. He continues to report weakness in his bilateral lower extremities and does demonstrate some confusion with questions. ROS: [No fever, chills, or rigors] [no cough, phlegm, or expectoration] [no nausea, vomiting, or diarrhea] [no hematuria, dysuria] [no musculoskelatal complaints] [no strokes or seizures] [no skin lesions] EXAMINATION: GENERAL: Well-appearing, well-nourished and in no acute distress. NECK: Supple without JVD or thyromegaly. LUNGS: Breath sounds clear to auscultation bilaterally. Respiration equal and unlabored. No wheezes, rales or rhonchi. HEART: Regular rate and rhythm without murmurs, rubs or gallops. S1 and S2 heard. EXTREMITIES: Normal range of motion, no edema. No clubbing or cyanosis. Peripheral pulses intact and strong. REVIEW OF LABS, ECG & MEDICAL DATA: LABS: White count 15.4, hemoglobin 14.4, platelets 184, sodium 136, potassium 4.0, BUN 12.7, creatinine 0.9, calcium 8.5 troponin less than 0.012 EKG: EKG from 08/22/2023 demonstrates sinus tachycardia IMAGING: X-ray pelvis dated 08/14/2023 demonstrates no acute fracture or dislocation seen. Chest x-ray dated 08/22/2023 demonstrates no evidence for acute pulmonary disease. X-ray from right forearm dated 08/22/2023 demonstrates no acute fracture or dislocation. CT of the brain without contrast dated 08/22/2023 demonstrates age-related atrophic atrophic and chronic small vessel ischemic change without acute intracranial process seen at this time, arachnoid cyst. CT of the lumbar spine dated 08/22/2023 demonstrates multilevel degenerative disc disease, mild central stenosis at L3-4 bilateral lateral recess stenosis, bilateral lateral recess stenosis at L4-5. CT angiogram of the head and neck dated 08/22/2023 demonstrates long segment soft plaque proximal le ft ICA with estimated diameter reduction of 55%, vascular asymmetry of distal left MCA branches relative to the right, correlate clinically. Echocardiogram dated 08/23/2023 demonstrates technically difficult study, endocardial margins are not very well seen, normal LV size and systolic function with mild to moderate concentric LVH, aortic valve sclerosis and mitral annular calcification and mild mitral and tricuspid regurgitation, no pericardial effusion. MRI of brain dated 08/24/2023 demonstrates multiple small acute cortical infarct scattered throughout the left cerebral hemisphere involving the frontal and parietal lobes, the findings are consistent with shower emboli. VITALS: Temp 96.9, pulse 84, respirations 19, blood pressure 135/85, O2 saturation 98% on room air IMPRESSION: 1. Left cerebral hemisphere infarct, with shower emboli noted. 2. Hypertension 3. Fall from standing PLAN: Increase lisinopril to 10 mg twice a day. Patient will be scheduled for transesophageal echocardiogram on Saturday. Patient will be nothing by mouth at midnight except for medications. Patient would highly benefit from a loop implant, which could be done post AIDEE. Further recommendations based on patient's clinical course. Thank you for the consult and allowing us to participate in the care of this patient. Past Medical History Past Medical History: Diabetes Mellitus, Hyperlipidemia, Hypertension History of Any Multi-Drug Resistant Organisms: None Reported Past Surgical History: No Surgical Hx Reported Additional Past Surgical History / Comment(s): nose Past Psychological History: No Psychological Hx Reported Smoking Status: Current every day smoker Past Alcohol Use History: None Reported Past Drug Use History: None Reported - Past Family History Father Family Medical History: Unable to Obtain (patient confused) Medications and Allergies Home Medications Medication Instructions Recorded Confirmed Type Simvastatin [Zocor] 20 mg PO HS 03/07/17 08/22/23 History metFORMIN HCL [Glucophage] 1,000 mg PO BID 03/07/17 08/22/23 History Tamsulosin HCl [Flomax] 0.4 mg PO DAILY 07/02/23 08/22/23 History amLODIPine BESYLATE/BENAZEPRIL 1 cap PO DAILY 07/02/23 08/22/23 History [amLODIPine BESYLATE/BENAZEPRIL 5-10 mg] Allergies Allergy/AdvReac Type Severity Reaction Status Date / Time No Known Allergies Allergy Verified 08/22/23 16:25 Physical Exam Vitals: Vital Signs Temp Pulse Resp BP Pulse Ox 08/25/23 13:57 97.5 F L 108 H 18 152/83 98 08/25/23 08:05 99 08/25/23 07:39 96.9 F L 84 19 135/85 98 08/25/23 02:00 98.5 F 84 16 147/83 95 08/24/23 20:00 98.8 F 96 17 137/83 98 Intake and Output 08/25/23 08/25/23 08/25/23 06:59 14:59 22:59 Output Total 850 Balance -850 Output: Urine 850 Other: Voiding Method Urinal Results 08/23/23 06:30 08/23/23 06:30 Current Medications Generic Name Dose Route Start Last Admin Trade Name Freq PRN Reason Stop Dose Admin Amlodipine Besylate 5 mg 08/23/23 09:00 08/25/23 07:42 Amlodipine 5 Mg Tab PO 5 mg DAILY RAY Administration Aspirin 81 mg 08/23/23 09:00 08/25/23 07:42 Aspirin 81 Mg PO 81 mg DAILY RAY Administration Atorvastatin Calcium 40 mg 08/23/23 21:00 08/24/23 22:02 Atorvastatin 40 Mg Tab PO 40 mg HS RAY Administration Clopidogrel Bisulfate 75 mg 08/23/23 12:15 08/25/23 07:41 Clopidogrel 75 Mg Tab PO 75 mg DAILY RAY Administration Heparin Sodium (Porcine) 5,000 unit 08/23/23 21:00 08/25/23 07:42 Heparin Sodium,Porcine 5,000 Unit/Ml 1 Ml Vial SQ 5,000 unit Q12HR RAY Administration Vancomycin HCl 1,500 mg/ 500 mls @ 167 mls/hr 08/25/23 04:00 08/25/23 04:12 Sodium Chloride IVPB 167 mls/hr Q16H RAY Administration Ceftriaxone Sodium 2 gm/ 50 mls @ 100 mls/hr 08/25/23 09:00 08/25/23 09:36 Sodium Chloride IVPB 100 mls/hr Q24HR RAY Administration Protocol Sodium Chloride 1,000 mls @ 50 mls/hr 08/25/23 08:30 08/25/23 09:15 Saline 0.9% IV Not Given .Q20H RAY Sodium Chloride 1,000 mls @ 50 mls/hr 08/25/23 08:30 08/25/23 09:35 Saline 0.9% IV 50 mls/hr .Q20H RAY Administration Lisinopril 10 mg 08/25/23 21:00 Lisinopril 10 Mg Tab PO BID RAY Miscellaneous Information 0 each 08/24/23 09:42 Vancomycin Iv Per Pharmacy 1 Each Misc MISCELLANE DIRECTED PRN PER PROTOCOL Naloxone HCl 0.2 mg 08/22/23 18:42 Naloxone 0.4 Mg/Ml 1 Ml Vial IV Q2M PRN Opioid Reversal Tamsulosin HCl 0.4 mg 08/23/23 09:00 08/25/23 07:41 Tamsulosin 0.4 Mg Cap.Er.24h PO 0.4 mg DAILY RAY Administration Intake and Output 08/25/23 08/25/23 08/25/23 06:59 14:59 22:59 Output Total 850 Balance -850 Output: Urine 850 Other: Voiding Method Urinal 08/23/23 06:30 08/23/23 06:30
--- NOTE | 2023-08-25 17:24 | P.GSCN ---
History of Present Illness Consult date: 08/25/23 History of present illness: Patient is a 78-year-old male with past medical history including diabetes, hypertension hyperlipidemia who came into the ER initially for weakness and fall. Apparently at the time of first evaluation he was confused. At the time of my evaluation the patient states he is feeling better without any significant concern or issue. He is not really sure what precipitated the events or what brought this on. Past Medical History Past Medical History: Diabetes Mellitus, Hyperlipidemia, Hypertension History of Any Multi-Drug Resistant Organisms: None Reported Past Surgical History: No Surgical Hx Reported Additional Past Surgical History / Comment(s): nose Past Psychological History: No Psychological Hx Reported Smoking Status: Current every day smoker Past Alcohol Use History: None Reported Past Drug Use History: None Reported - Past Family History Father Family Medical History: Unable to Obtain (patient confused) Medications and Allergies Home Medications Medication Instructions Recorded Confirmed Type Simvastatin [Zocor] 20 mg PO HS 03/07/17 08/22/23 History metFORMIN HCL [Glucophage] 1,000 mg PO BID 03/07/17 08/22/23 History Tamsulosin HCl [Flomax] 0.4 mg PO DAILY 07/02/23 08/22/23 History amLODIPine BESYLATE/BENAZEPRIL 1 cap PO DAILY 07/02/23 08/22/23 History [amLODIPine BESYLATE/BENAZEPRIL 5-10 mg] Allergies Allergy/AdvReac Type Severity Reaction Status Date / Time No Known Allergies Allergy Verified 08/22/23 16:25 Surgical - Exam Vital Signs Temp Pulse Resp BP Pulse Ox 98.7 F 115 H 22 142/70 96 08/22/23 14:57 08/22/23 14:57 08/22/23 14:57 08/22/23 14:57 08/22/23 14:57 General is a pleasant cooperative male in no acute distress. Heart appears regular at this time. Lungs are clear. Abdomen is soft. Extremities show no clubbing, cyanosis or edema. Mild expiratory wheeze with cough. Cranial nerves II through XII grossly intact. Somewhat slow to respond but otherwise alert and oriented to person and place Results - Labs 08/23/23 06:30 08/23/23 06:30 Abnormal Lab Results - Last 24 Hours (Table) 08/25/23 Range/Units 09:19 POC Glucose (mg/dL) 117 H (70-110) mg/dL Microbiology - Last 24 Hours (Table) 08/22/23 15:22 Urine Culture - Final Urine,Clean Catch Escherichia coli 08/22/23 18:35 Blood Culture Gram Stain - Final Blood Blood Culture - Final Coagulase Negative Staph Coagulase Negative Staph#2 08/22/23 18:35 Blood Culture Gram Stain - Final Blood Blood Culture - Final Coagulase Negative Staph Coagulase Negative Staph#2 Assessment and Plan Assessment: Mild left ICA stenosis close to 50% on CT angiogram Multiple small left-sided multifocal infarcts, consider shower emboli Plan: Long discussion had with patient and family at the bedside. Patient has been started on dual antiplatelet therapy as well as statin. Given his relatively minimal degree of stenosis, would recommend medical optimization with best medical therapy. Also agree with cardiology evaluation for potential cardiac source given multifocal nature of the disease. I believe he would be best suited by continued surveillance at this time as he has never been treated previously however if he does develop further symptoms on this treatment would discuss potentially going forward with carotid intervention. Patient seemingly understands and is willing to proceed in this regard.
[2023-08-25] MEDS: ATORVASTATIN 40 MG TAB PO SCH (21:14)
[2023-08-26 05:11] LABS: Glucose,Whole Blood 115 mg/dL (70-110)
[2023-08-26] MEDS: SODIUM CHLORIDE 0.9% 1,000 ML IV SCH ×2 (08:07→08:57)
[2023-08-26] MEDS: lisinopriL 10 MG TAB PO SCH ×2 (08:56→21:05)
[2023-08-26] MEDS: amLODIPine 5 MG TAB PO SCH (08:56)
[2023-08-26] MEDS: HEPARIN SODIUM,PORCINE 5,000 UNIT/ML 1 ML VIAL SQ SCH ×2 (08:56→21:05)
[2023-08-26] MEDS: TAMSULOSIN 0.4 MG CAP.ER.24H PO SCH (08:56)
[2023-08-26] MEDS: ASPIRIN 81 MG PO SCH (08:56)
[2023-08-26] MEDS: CLOPIDOGREL 75 MG TAB PO SCH (08:56)
--- NOTE | 2023-08-26 09:31 | P.PN ---
Subjective Progress Note Date: 08/26/23 HPI: Patient is a 78-year-old male with a past medical history includes diabetes mellitus, hyperlipidemia, and hypertension who presents to the hospital post fall. It is reported the patient fell at home and had a witnessed fall. Patient reports that his legs just gave out and he was unable to support h imself. Patient was noted to be confused in the emergency department. Family reports the patient is normally able to ambulate. Patient had multiple imaging studies done which were negative for any acute process or fracture. Brain CT was negative for obvious stroke, however MRI was recommended. The patient has continued to remain weak in his bilateral lower extremities with confusion noted. An MRI of the brain was ordered, which did demonstrate multiple small acute cortical infarct scattered throughout the left cerebral hemisphere involving the frontal parietal lobes consistent with shower emboli. Cardiology was consulted to assist in finding the etiology of the emboli. Today the new ent reports that he's feeling okay. He continues to report weakness in his bilateral lower extremities and does demonstrate some confusion with questions. REVIEW OF LABS, ECG & MEDICAL DATA: LABS: White count 15.4, hemoglobin 14.4, platelets 184, sodium 136, potassium 4.0, BUN 12.7, creatinine 0.9, calcium 8.5 troponin less than 0.012 EKG: EKG from 08/22/2023 demonstrates sinus tachycardia IMAGING: X-ray pelvis dated 08/14/2023 demonstrates no acute fracture or dislocation seen. Chest x-ray dated 08/22/2023 demonstrates no evidence for acute pulmonary disease. X-ray from right forearm dated 08/22/2023 demonstrates no acute fracture or dislocation. CT of the brain without contrast dated 08/22/2023 demonstrates age-related atrophic atrophic and chronic small vessel ischemic change without acute intracranial process seen at this time, arachnoid cyst. CT of the lumbar spine dated 08/22/2023 demonstrates multilevel degenerative disc disease, mild central stenosis at L3-4 bilateral lateral recess stenosis, bilateral lateral recess stenosis at L4-5. CT angiogram of the head and neck dated 08/22/2023 demonstrates long segment soft plaque proximal left ICA with estimated diameter reduction of 55%, vascular asymmetry of distal left MCA branches relative to the right, correlate clinically. Echocardiogram dated 08/23/2023 demonstrates technically difficult study, endocardial margins are not very well seen, normal LV size and systolic function with mild to moderate concentric LVH, aortic valve sclerosis and mitral annular calcification and mild mitral and tricuspid regurgitation, no pericardial effusion. MRI of brain dated 08/24/2023 demonstrates multiple small acute cortical infarct scattered throughout the left cerebral hemisphere involving the frontal and parietal lobes, the findings are consistent with shower emboli. VITALS: Temp 96.9, pulse 84, respirations 19, blood pressure 135/85, O2 saturation 98% on room air 08/26 The patient is seen today in follow-up. He is scheduled for AIDEE today. No complaints of chest pain. Yesterday, lisinopril was increased to 10 mg twice daily. Blood pressure is running 120/62 this morning heart rate is in the 70s to 90s. EXAMINATION: GENERAL: Well-appearing, well-nourished and in no acute distress. NECK: Supple without JVD or thyromegaly. LUNGS: Breath sounds clear to auscultation bilaterally. Respiration equal and unlabored. No wheezes, rales or rhonchi. HEART: Regular rate and rhythm without murmurs, rubs or gallops. S1 and S2 heard. EXTREMITIES: No edema. No clubbing or cyanosis. Peripheral pulses intact and s wagner. IMPRESSION: 1. Left cerebral hemisphere infarct, with shower emboli noted. 2. Hypertension 3. Fall from standing PLAN: Continue lisinopril 10 mg twice a day. Patient will be scheduled for transesophageal echocardiogram today. Patient would highly benefit from a loop implant, which could be done post AIDEE. Further recommendations based on patient's clinical course. Thank you for the consult and allowing us to participate in the care of this patient. Objective - Vital Signs Vital signs: Vital Signs Temp 98.4 F 08/26/23 02:13 Pulse 77 08/26/23 02:13 Resp 17 08/26/23 02:13 BP 120/62 08/26/23 02:13 Pulse Ox 98 08/26/23 02:13 FiO2 Intake & Output 08/25/23 08/26/23 08/26/23 18:59 06:59 18:59 Other: Voiding Method Urinal Urinal # Voids 3 3 # Bowel Movements 1 - Labs CBC & Chem 7: 08/23/23 06:30 08/23/23 06:30 Labs: Abnormal Lab Results - Last 24 Hours (Table) 08/25/23 08/26/23 Range/Units 09:19 05:09 POC Glucose (mg/dL) 117 H 115 H (70-110) mg/dL Microbiology - Last 24 Hours (Table) 08/22/23 15:22 Urine Culture - Final Urine,Clean Catch Escherichia coli 08/22/23 18:35 Blood Culture Gram Stain - Final Blood Blood Culture - Final Coagulase Negative Staph Coagulase Negative Staph#2 08/22/23 18:35 Blood Culture Gram Stain - Final Blood Blood Culture - Final Coagulase Negative Staph Coagulase Negative Staph#2
[2023-08-26] MEDS ORDERED: IV FLUID CONTINUATION 500 ML IV ONE (11:01)
[2023-08-26] MEDS: BENZOCAINE SPRAY 1 CAN TOPICAL ONE ×2 (11:08→11:17)
[2023-08-26] MEDS ORDERED: fentaNYL (PF) 50 MCG/ML 2 ML AMP IVP ONE (11:18)
[2023-08-26] MEDS ORDERED: MIDAZOLAM 2 MG/2 ML VIAL IVP ONE (11:18)
[2023-08-26] MEDS ORDERED: IV FLUID CONTINUATION 400 ML IV ONE (11:27)
--- NOTE | 2023-08-26 11:27 | P.PN ---
Subjective Progress Note Date: 08/26/23 Principal diagnosis: Carotid stenosis Patient seen and examined today for follow-up. He is scheduled for AIDEE. Currently on aspirin and Plavix. No reported new focal deficits. States weakness improving. No other acute changes. Objective - Vital Signs Vital signs: Vital Signs Temp 97.6 F 08/26/23 07:56 Pulse 68 08/26/23 07:56 Resp 15 08/26/23 07:56 BP 148/85 08/26/23 07:56 Pulse Ox 99 08/26/23 07:56 FiO2 Intake & Output 08/25/23 08/26/23 08/26/23 18:59 06:59 18:59 Other: Voiding Method Urinal Urinal # Voids 3 3 # Bowel Movements 1 - Exam General appearance: The patient is alert, oriented, appears in no acute distress. HET: Head is normocephalic and atraumatic. Pupils are equal and reactive. Neck: Supple. Abdomen: Soft, nondistended. Extremities: Normal skin color and turgor. Neurological: No focal deficits. Strength and sensation are grossly intact. - Labs CBC & Chem 7: 08/23/23 06:30 08/23/23 06:30 Labs: Abnormal Lab Results - Last 24 Hours (Table) 08/26/23 Range/Units 05:09 POC Glucose (mg/dL) 115 H (70-110) mg/dL Microbiology - Last 24 Hours (Table) 08/22/23 15:22 Urine Culture - Final Urine,Clean Catch Escherichia coli 08/22/23 18:35 Blood Culture Gram Stain - Final Blood Blood Culture - Final Coagulase Negative Staph Coagulase Negative Staph#2 08/22/23 18:35 Blood Culture Gram Stain - Final Blood Blood Culture - Final Coagulase Negative Staph Coagulase Negative Staph#2 Assessment and Plan Assessment: 1. Mild left ICA stenosis close to 50% on CT angiogram 2. Multiple small left-sided multifocal infarcts, consider shower emboli Plan: Continue dual antiplatelet therapy and statin. Recommend medical optimization with best medical therapy. Cardiology following, AIDEE and LOOP recorder today. Recommend continued outpatient surveillance, further discussion of the surgical intervention should patient develop symptoms. We will continue to follow. The impression and plan of care has been dictated as directed. I performed a history and examination of this patient, discussed the same with the dictator. I agree with the dictator's note ,documented as a scribe. Any additional findings or plans will be noted.
[2023-08-26] MEDS ORDERED: LIDOCAINE 1% INJ 10MG/ML (20 ML MDV) SQ ONE (11:45)
--- NOTE | 2023-08-26 11:56 | P.EPPROC ---
- EP Procedure Note Electrophysiology Procedure Note: Loop monitor implant Primary physicians: Meter/Relay Craftsman: Dr. North Indication: Embolic stroke Patient was brought to the EP lab in a fasting state. Written informed consent was obtained prior to the procedure. The left pectoral area was prepped and draped per protocol. Intravenous antibiotic was administered preoperatively. A subcutaneous Loop monitor was implanted successfully and the wound was closed per protocol. The device was programmed to detect significant teresa- arrhythmic and tachy-arrhythmic events, per protocol. Device and programming details: A. fib detection
--- NOTE | 2023-08-26 12:51 | P.PN ---
Subjective Progress Note Date: 08/26/23 Patient is a 78-year-old male with a PMH of type II DM, hypertension, hyperlipidemia who was brought into the emergency room by EMS for fall and weakness. The history was obtained from the chart as the patient was very confused at the time of interview. Attempted to reach family via phone numbers listed on the chart with no response and full mailbox. The patient who was reportedly previously seen walking normally 2 days ago and does not use any assistive devices reportedly had a fall earlier today from standing home, with resulting right forearm abrasion. The patient had denied experiencing loss of consciousness and that his legs had given out on him. The patient was also noted to have right upper extremity weakness during the interview and reported that this has been ongoing for the past 2-3 weeks. He denied headaches or visual disturbances. Denied chest discomfort, shortness of breath, fever, chills. He does have an extensive smoking history and reports a chronic cough. Patient den ied alcohol use. CT angiogram of the head and neck in the emergency room revealed vascular asymmetry of the distal left MCA relative to the right with no other acute abnormalities. CT brain was unremarkable with CT lumbar spine also unremarkable. EKG revealed sinus tachycardia at 116 bpm. Chest x-ray was unremarkable. Forearm x-ray was unremarkable. Pelvis x-ray was unremarkable. Laboratory evaluation remarkable for leukocytosis of 15.3, hyponatremia with sodium 132, troponin less than 0.012, with UA indeterminate. 08/23 Patient was seen and examined. Pleasantly confused. Still with RUE weakness. Denies any dysuria.CBC shows WBC count of 15.48. BMP shows bicarb of 21, glucose 129, Ca 8.5. Echo shows EF 55-60% with LV thickness. Neurology consulted, recommends MRI brain, A1c, Lipid panel, TSH. 08/24 Patient was seen and examined. Clinical condition unchanged. MRI brain shows multiple small acute cortical infarcts scattered throughout the left cerebral hemisphere. BCx + staph epi x 2, patient is switched to Vancomycin dosed per pharmacy. Urine culture positive for gram-negative bacilli. Cardiology will be consulted for possible AIDEE and embolic workup. 08/25 Patient was seen and examined. He reports improvement in his RUE weakness. Plans for AIDEE and Loop recorder tomorrow. BCx + coag negative staph treated with Vancomycin. UCX + gram negative bacilli treated with Rocephin. Discussed with Dr. Anderson. 08/26 Patient was seen and examined. Vascular surgery consulted, recommends medical optimization with best medical therapy unless symptoms worsen. Plans for AIDEE and Loop recorder today. Repeat BCx pending. MRA head and neck also ordered. UCx returned back for 10-50k E. Coli he sensitive. General: non toxic, no distress, appears at stated age, obese Derm: no unusual rashes/lesions, warm Head: atraumatic, normocephalic, symmetric Eyes: EOMI, no lid lag, anicteric sclera ENT: Nose and ears atraumatic Neck: No cervical lymphadenopathy, trachea midline, supple Cardiovascular: S1S2 reg, no murmur, no edema Lungs: Decreased BS BL, no accessory muscle use Ext: muscle strength 3 out of 5 in bilateral lower extremities grossly, right upper extremity strength to out of 5, left upper extremity strength 4 out of 5, no gross muscle atrophy, no contractures Psych: Somewhat slow to respond, oriented to person and place, not oriented to time Embolic CVA Gram + bacteremia Sepsis related to UTI Chronic conditions: type II DM, hypertension, hyperlipidemia Based on my assessment of this patient, this patient meets a high complexity level of care. Patient has an acute diagnosis of Acute metabolic encephalopathy with RLE weakness that poses a threat to life or bodily function. Embolic CVA: MRI brain as above. A1c, Lipid panel. ASA 81 mg PO QD, Lipitor 40 mg PO QHS. Plavix 75 mg PO QD. Cardiology consulted for AIDEE and Loop recorder today. MRA head and neck pending. Gram-positive bacteremia: Possible contaminant. Continue Vancomycin and follow repeat BCx. Sepsis related to UTI: Rocephin added back today for gram negative coverage. Vancomycin on 08/24. UCx E. coli. Telemetry monitoring. I have reviewed the following events solutions consultant notes: Vascular surgery note. I have reviewed the results of the following tests: BCx. UCx I have ordered the following tests: Agree with A1c, Lipid panel, TSH. Agree with AIDEE and Loop recorder. I have discussed the care of this patient with the following independent historian: I have independently interpreted the following test below: I have discussed the management of this patient with the following physician: Objective - Vital Signs Vital signs: Vital Signs Temp 97.6 F 08/26/23 12:34 Pulse 76 08/26/23 12:34 Resp 16 08/26/23 12:34 BP 150/85 08/26/23 12:34 Pulse Ox 97 08/26/23 12:34 FiO2 Intake & Output 08/25/23 08/26/23 08/26/23 18:59 06:59 18:59 Intake Total 200 Balance 200 Intake: IV 200 Other: Voiding Method Urinal Urinal Toilet Urinal # Voids 3 3 # Bowel Movements 1 - Labs CBC & Chem 7: 08/23/23 06:30 08/23/23 06:30 Labs: Abnormal Lab Results - Last 24 Hours (Table) 08/26/23 Range/Units 05:09 POC Glucose (mg/dL) 115 H (70-110) mg/dL Microbiology - Last 24 Hours (Table) 08/22/23 15:22 Urine Culture - Final Urine,Clean Catch Escherichia coli 08/22/23 18:35 Blood Culture Gram Stain - Final Blood Blood Culture - Final Coagulase Negative Staph Coagulase Negative Staph#2 08/22/23 18:35 Blood Culture Gram Stain - Final Blood Blood Culture - Final Coagulase Negative Staph Coagulase Negative Staph#2
[2023-08-26] MEDS: VANCOMYCIN 1,500 MG in SODIUM CHLORIDE 0.9% 500 ML 500 ML IVPB SCH (13:51)
[2023-08-26] MEDS: ATORVASTATIN 40 MG TAB PO SCH (21:05)
[2023-08-26 23:08] LABS: Chol/HDL Ratio 2.37 Ratio; LDL Cholesterol,Calculated 42.4 mg/dL (0.0-131.0)
[2023-08-27] MEDS ORDERED: VANCOMYCIN TROUGH DUE 1 EACH MISC MISCELLANE ONE (03:00)
--- NOTE | 2023-08-27 03:35 | ECHOT ---
TRANSESOPHAGEAL ECHOCARDIOGRAM INDICATION: CVA. PROCEDURE NOTE: After obtaining informed consent, transesophageal echocardiogram was performed in left lateral position using an Omniplane probe. Local and IV sedation were obtained using 1 mg of Versed and 25 mcg of fentanyl. The patient tolerated the procedure well without any obvious immediate complications. FINDINGS: 1. There is no intracardiac thrombus within the left atrial appendage, left atrium, right atrium, or right ventricle. 2. Left ventricle has normal size and systolic function. 3. Interatrial septum appears aneurysmal. I did not appreciate any [id number] shunt with color-flow Doppler or [id number] shunt with agitated saline contrast study including with Valsalva maneuver. Left atrium appears mildly enlarged. Right atrium, right ventricle seen within normal limits. Color Doppler evaluation of the valve structures reveals that the aortic valve is a 3-leaflet valve. There is no evidence of aortic stenosis or regurgitation. Mitral valve shows mild mitral regurgitation. There is mild tricuspid regurgitation. 4. Aortic root measures within normal limits. CONCLUSIONS: 1. Normal LV systolic function. 2. No intracardiac thrombus. 3. No evidence of shunting across the interatrial septum. 4. 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 MMODL / IJN: [id number] /
[2023-08-27] MEDS: VANCOMYCIN 1,500 MG in SODIUM CHLORIDE 0.9% 500 ML 500 ML IVPB SCH ×2 (04:15→16:23)
[2023-08-27 04:20] LABS: African American GFR (CKD) >90 (>60 ml/min/1.73 sqM); Non-African American GFR(CKD) 86 (>60 ml/min/1.73 sqM)
[2023-08-27] MEDS: SODIUM CHLORIDE 0.9% 1,000 ML IV SCH ×4 (07:47→22:42)
[2023-08-27] MEDS: ASPIRIN 81 MG PO SCH (08:31)
[2023-08-27] MEDS: lisinopriL 10 MG TAB PO SCH ×2 (08:31→20:47)
[2023-08-27] MEDS: amLODIPine 5 MG TAB PO SCH (08:31)
[2023-08-27] MEDS: HEPARIN SODIUM,PORCINE 5,000 UNIT/ML 1 ML VIAL SQ SCH ×2 (08:31→20:47)
[2023-08-27] MEDS: CLOPIDOGREL 75 MG TAB PO SCH (08:31)
[2023-08-27] MEDS: TAMSULOSIN 0.4 MG CAP.ER.24H PO SCH (08:31)
--- NOTE | 2023-08-27 08:55 | P.PN ---
Subjective Progress Note Date: 08/27/23 HPI: Patient is a 78-year-old male with a past medical history includes diabetes mellitus, hyperlipidemia, and hypertension who presents to the hospital post fall. It is reported the patient fell at home and had a witnessed fall. Patient reports that his legs just gave out and he was unable to support h imself. Patient was noted to be confused in the emergency department. Family reports the patient is normally able to ambulate. Patient had multiple imaging studies done which were negative for any acute process or fracture. Brain CT was negative for obvious stroke, however MRI was recommended. The patient has continued to remain weak in his bilateral lower extremities with confusion noted. An MRI of the brain was ordered, which did demonstrate multiple small acute cortical infarct scattered throughout the left cerebral hemisphere involving the frontal parietal lobes consistent with shower emboli. Cardiology was consulted to assist in finding the etiology of the emboli. Today the new ent reports that he's feeling okay. He continues to report weakness in his bilateral lower extremities and does demonstrate some confusion with questions. REVIEW OF LABS, ECG & MEDICAL DATA: LABS: White count 15.4, hemoglobin 14.4, platelets 184, sodium 136, potassium 4.0, BUN 12.7, creatinine 0.9, calcium 8.5 troponin less than 0.012 EKG: EKG from 08/22/2023 demonstrates sinus tachycardia IMAGING: X-ray pelvis dated 08/14/2023 demonstrates no acute fracture or dislocation seen. Chest x-ray dated 08/22/2023 demonstrates no evidence for acute pulmonary disease. X-ray from right forearm dated 08/22/2023 demonstrates no acute fracture or dislocation. CT of the brain without contrast dated 08/22/2023 demonstrates age-related atrophic atrophic and chronic small vessel ischemic change without acute intracranial process seen at this time, arachnoid cyst. CT of the lumbar spine dated 08/22/2023 demonstrates multilevel degenerative disc disease, mild central stenosis at L3-4 bilateral lateral recess stenosis, bilateral lateral recess stenosis at L4-5. CT angiogram of the head and neck dated 08/22/2023 demonstrates long segment soft plaque proximal left ICA with estimated diameter reduction of 55%, vascular asymmetry of distal left MCA branches relative to the right, correlate clinically. Echocardiogram dated 08/23/2023 demonstrates technically difficult study, endocardial margins are not very well seen, normal LV size and systolic function with mild to moderate concentric LVH, aortic valve sclerosis and mitral annular calcification and mild mitral and tricuspid regurgitation, no pericardial effusion. MRI of brain dated 08/24/2023 demonstrates multiple small acute cortical infarct scattered throughout the left cerebral hemisphere involving the frontal and parietal lobes, the findings are consistent with shower emboli. VITALS: Temp 96.9, pulse 84, respirations 19, blood pressure 135/85, O2 saturation 98% on room air 08/26 The patient is seen today in follow-up. He is scheduled for AIDEE today. No complaints of chest pain. Yesterday, lisinopril was increased to 10 mg twice daily. Blood pressure is running 120/62 this morning heart rate is in the 70s to 90s. 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 He also had a loop recorder placed. Loop recorder surgical site shows no signs of infection. He is scheduled and waiting for MRI. No new concerns from the patient. No chest pain, no lightheadedness no palpitations. EXAMINATION: GENERAL: Well-appearing, well-nourished and in no acute distress. NECK: Supple without JVD or thyromegaly. LUNGS: Breath sounds clear to auscultation bilaterally. Respiration equal and unlabored. No wheezes, rales or rhonchi. HEART: Regular rate and rhythm without murmurs, rubs or gallops. S1 and S2 heard. EXTREMITIES: No edema. No clubbing or cyanosis. Peripheral pulses intact and strong. IMPRESSION: 1. Left cerebral hemisphere infarct, with shower emboli noted. 2. Hypertension 3. Fall from standing PLAN: Patient is status post AIDEE and loop recorder Continue lisinopril 10 mg twice a day. Patient is cleared for discharge from cardiology and may follow-up in the office in 6 weeks. Thank you for the consult and allowing us to participate in the care of this patient. Objective - Vital Signs Vital signs: Vital Signs Temp 98.5 F 08/27/23 07:11 Pulse 73 08/27/23 07:11 Resp 16 08/27/23 07:11 BP 142/82 08/27/23 07:11 Pulse Ox 98 08/27/23 07:11 FiO2 Intake & Output 10/02/23 10/03/23 10/03/23 18:59 06:59 18:59 Intake Total 200 Balance 200 Intake: IV 200 Other: Voiding Method Toilet Toilet Urinal Urinal # Voids 3 # Bowel Movements 1 - Labs CBC & Chem 7: 08/23/23 06:30 08/27/23 03:42 Labs: Abnormal Lab Results - Last 24 Hours (Table) 08/23/23 Range/Units 06:30 HDL Cholesterol 39.30 L (40.00-60.00) mg/dL Microbiology - Last 24 Hours (Table) 08/25/23 06:27 Blood Culture - Preliminary Blood
--- NOTE | 2023-08-27 10:44 | P.PN ---
Subjective Progress Note Date: 08/27/23 Principal diagnosis: Carotid stenosis Patient seen and examined today for follow-up. Yesterday he underwent loop recorder placement as well as AIDEE. AIDEE reported normal LV systolic function. No intracardiac thrombus. No evidence of shunting across the interatrial septum. Anterior atrial septum is aneurysmally dilated. Patient without any new complaints. No focal deficits noted. CT angiogram head and neck reviewed by Dr. Hodges, possible left ICA aneurysm. He is awaiting his MRA of head and neck. Objective - Vital Signs Vital signs: Vital Signs Temp 98.5 F 08/27/23 07:11 Pulse 73 08/27/23 07:11 Resp 16 08/27/23 07:11 BP 142/82 08/27/23 07:11 Pulse Ox 98 08/27/23 07:11 FiO2 Intake & Output 08/26/23 08/27/23 08/27/23 18:59 06:59 18:59 Intake Total 200 Balance 200 Intake: IV 200 Other: Voiding Method Toilet Toilet Urinal Urinal # Voids 3 # Bowel Movements 1 - Exam General appearance: The patient is alert, oriented, appears in no acute distress. HET: Head is normocephalic and atraumatic. Pupils are equal and reactive. Neck: Supple. Abdomen: Soft, nondistended. Extremities: Normal skin color and turgor. Neurological: No focal deficits. Strength and sensation are grossly intact. - Labs CBC & Chem 7: 08/23/23 06:30 08/27/23 03:42 Labs: Abnormal Lab Results - Last 24 Hours (Table) 08/23/23 Range/Units 06:30 HDL Cholesterol 39.30 L (40.00-60.00) mg/dL Microbiology - Last 24 Hours (Table) 08/25/23 06:27 Blood Culture - Preliminary Blood Assessment and Plan Assessment: 1. Mild left ICA stenosis close to 50% on CT angiogram, possible left ICA aneurysm 2. Multiple small left-sided multifocal infarcts, consider shower emboli Plan: Continue dual antiplatelet therapy and statin. Recommend medical optimization with best medical therapy. Await MRA head and neck results. Further recommendations forthcoming a from vascular surgery. Continue with recommendations from neurology. We will continue to follow. The impression and plan of care has been dictated as directed. Dr. Hodges I performed a history and examination of this patient, discussed the same with the dictator. I agree with the dictator's note ,documented as a scribe. Any additional findings or plans will be noted.
--- NOTE | 2023-08-27 13:24 | P.PN ---
Subjective Progress Note Date: 08/27/23 Patient is a 78-year-old male with a PMH of type II DM, hypertension, hyperlipidemia who was brought into the emergency room by EMS for fall and weakness. The history was obtained from the chart as the patient was very confused at the time of interview. Attempted to reach family via phone numbers listed on the chart with no response and full mailbox. The patient who was reportedly previously seen walking normally 2 days ago and does not use any assistive devices reportedly had a fall earlier today from standing home, with resulting right forearm abrasion. The patient had denied experiencing loss of consciousness and that his legs had given out on him. The patient was also noted to have right upper extremity weakness during the interview and reported that this has been ongoing for the past 2-3 weeks. He denied headaches or visual disturbances. Denied chest discomfort, shortness of breath, fever, chills. He does have an extensive smoking history and reports a chronic cough. Patient den ied alcohol use. CT angiogram of the head and neck in the emergency room revealed vascular asymmetry of the distal left MCA relative to the right with no other acute abnormalities. CT brain was unremarkable with CT lumbar spine also unremarkable. EKG revealed sinus tachycardia at 116 bpm. Chest x-ray was unremarkable. Forearm x-ray was unremarkable. Pelvis x-ray was unremarkable. Laboratory evaluation remarkable for leukocytosis of 15.3, hyponatremia with sodium 132, troponin less than 0.012, with UA indeterminate. 08/23 Patient was seen and examined. Pleasantly confused. Still with RUE weakness. Denies any dysuria.CBC shows WBC count of 15.48. BMP shows bicarb of 21, glucose 129, Ca 8.5. Echo shows EF 55-60% with LV thickness. Neurology consulted, recommends MRI brain, A1c, Lipid panel, TSH. 08/24 Patient was seen and examined. Clinical condition unchanged. MRI brain shows multiple small acute cortical infarcts scattered throughout the left cerebral hemisphere. BCx + staph epi x 2, patient is switched to Vancomycin dosed per pharmacy. Urine culture positive for gram-negative bacilli. Cardiology will be consulted for possible AIDEE and embolic workup. 08/25 Patient was seen and examined. He reports improvement in his RUE weakness. Plans for AIDEE and Loop recorder tomorrow. BCx + coag negative staph treated with Vancomycin. UCX + gram negative bacilli treated with Rocephin. Discussed with Dr. Anderson. 08/26 Patient was seen and examined. Vascular surgery consulted, recommends medical optimization with best medical therapy unless symptoms worsen. Plans for AIDEE and Loop recorder today. Repeat BCx pending. MRA head and neck also ordered. UCx returned back for 10-50k E. Coli he sensitive currently on Rocephin. 08/27 Patient was seen and examined. He has improved RUE mobility. Clinically improving. AIDEE done yesterday shows no thrombus or shunt. Loop recorder implanted yesterday as well. Awaiting MRA head and neck scheduled for 3PM today. Plans for [facility] on discharge, pending auth. Repeat BCx negative at 48H. Renal function shows normal Cr and GFR. Vanc trough 12.4. A1c 6. Lipid panel T. Chol 93 and LDL 42.4. TSH 0.878. General: non toxic, no distress, appears at stated age, obese Derm: no unusual rashes/lesions, warm Head: atraumatic, normocephalic, symmetric Eyes: EOMI, no lid lag, anicteric sclera ENT: Nose and ears atraumatic Neck: No cervical lymphadenopathy, trachea midline, supple Cardiovascular: S1S2 reg, no murmur, no edema Lungs: Decreased BS BL, no accessory muscle use Ext: muscle strength 3 out of 5 in bilateral lower extremities grossly, right upper extremity strength to out of 5, left upper extremity strength 4 out of 5, no gross muscle atrophy, no contractures Psych: Somewhat slow to respond, oriented to person and place, not oriented to time Embolic CVA Gram + bacteremia Sepsis related to UTI Chronic conditions: type II DM, hypertension, hyperlipidemia Based on my assessment of this patient, this patient meets a high complexity level of care. Patient has an acute diagnosis of Acute metabolic encephalopathy with RLE weakness that poses a threat to life or bodily function. Embolic CVA: MRI brain as above. ASA 81 mg PO QD, Lipitor 40 mg PO QHS. Plavix 75 mg PO QD. Status post AIDEE and Loop recorder. MRA head and neck pending. Gram-positive bacteremia: Possible contaminant. Continue Vancomycin and follow repeat BCx. Sepsis related to UTI: Rocephin 1g IV QD. UCx E. coli. Telemetry monitoring. Heparin SQ for DVT prophylaxis. FULL CODE. Dispo: [facility] after MRA is complete pending insurance auth. I have reviewed the following jd edwards consultant notes: Vascular surgery note. I have reviewed the results of the following tests: BCx. Renal function. A1c. Lipid panel I have ordered the following tests: Agree MRA head and neck. I have discussed the care of this patient with the following independent historian: I have independently interpreted the following test below: I have discussed the management of this patient with the following physician: Objective - Vital Signs Vital signs: Vital Signs Temp 98.5 F 08/27/23 07:11 Pulse 73 08/27/23 08:00 Resp 16 08/27/23 08:00 BP 142/82 08/27/23 07:11 Pulse Ox 98 08/27/23 07:11 FiO2 Intake & Output 08/26/23 08/27/23 08/27/23 18:59 06:59 18:59 Intake Total 200 Balance 200 Intake: IV 200 Other: Voiding Method Toilet Toilet Toilet Urinal Urinal Urinal # Voids 3 # Bowel Movements 1 - Labs CBC & Chem 7: 08/23/23 06:30 08/27/23 03:42 Labs: Abnormal Lab Results - Last 24 Hours (Table) 08/23/23 Range/Units 06:30 HDL Cholesterol 39.30 L (40.00-60.00) mg/dL Microbiology - Last 24 Hours (Table) 08/25/23 06:27 Blood Culture - Preliminary Blood
--- NOTE | 2023-08-27 16:15 | MR ---
EXAMINATION TYPE: MR angio head wo/neck wo/w con DATE OF EXAM: 08/27/2023 3:48 PM CLINICAL INDICATION:Male, 78 years old with history of stroke; COMPARISON: 08/22/2023 Technical: MRA brain: 2D and 3-D [id number] Axial with MIP and 3-D reconstruction. Performed on a separate w orkstation. MRA neck: Multiplanar, multi-sequence imaging as well as [id number] and phase was performed extra cranial vasculature of the neck. 3-D reformatted images and maximum intensity projection reformatted images were submitted for evaluation, these are performed on a separate workstation. IV Contrast: 9 cc Gadavist Findings: Vertebral arteries: The vertebral arteries are patent. Vertebral arteries are: Codominant. Basilar artery: The basilar artery is intact. The basilar artery bifurcation is normal. Internal Carotid arteries: The cervical, petrous, cavernous and supraclinoid segments are normal. NAYAN: Patent with no evidence of aneurysm. ACOM: Present without evidence of aneurysm. MCA: Patent with no evidence of aneurysm. [employer]: Patent with no evidence of aneurysm. origin of the left posterior cerebral artery. PCOM: Hypoplastic right. RIGHT CAROTID SYSTEM: The common carotid artery is patent. The carotid bifurcations demonstrates no e vidence for hemodynamically significant stenosis. The internal carotid artery is patent. LEFT CAROTID SYSTEM: The common carotid artery is patent. The carotid bifurcations demonstrates no e vidence for hemodynamically significant stenosis. The internal carotid artery is patent. The origins of the great vessels and vertebral arteries appear unremarkable. Vertebral arteries are c odominant. IMPRESSION: 1. No evidence of intracranial aneurysm or significant stenosis. 2. No evidence of significant stenosis at the carotid bifurcations. The carotid and vertebral arteri es are patent. 3. No evidence aneurysm.
--- NOTE | 2023-08-27 19:09 | P.PN ---
Subjective Progress Note Date: 08/27/23 Patient was initially seen by Dr. Pj Anderson. Please refer to his note for detail. Patient is a 78-year-old male with recent left stroke (frontal/parietal/temporal, occipital), that seems embolic. Patient has asymmetry of MCA on CTA but no thrombus. Patient is sitting in the recliner. Offers no complaints. No headache. Patient states he has smoked one pack per day every 2 days since he was age 9. Some other workup in our facility consisted of: Urinalysis seems questionable for urinary tract infection CT of the head is reported as age-related atrophic and chronic small vessel ischemic change without acute intracranial process seen at this time. Arachnoid cyst as discussed. CT angiography of the head and neck was reported as vascular asymmetry of the distal left MCA branches relative to the right. Correlate clinically. Nobody reported it is reported the patient has arachnoid cyst in the right middle cranial fossa measuring between 4.52.7 cm. 2D echo: It is reported as technically difficult study. Endocardial margins are not very well seen. Normal left ventricular size and systolic function with mild to moderate concentric left ventricular hypertrophy. Aortic valve sclerosis and mitral annular calcification and mild mitral and tricuspid regurgitation. No pericardial effusion. MRI Brain: It is reported as multiple small acute cortical infarcts scattered throughout the left cerebral hemisphere involving the frontal and parietal lobes. This finding are consistent with the shower emboli. I also felt also involving the left temporal occipital and addition. I reviewed MRI from agree with the findings. Objective - Vital Signs Vital signs: Vital Signs Temp 97.9 F 08/27/23 13:25 Pulse 100 08/27/23 13:25 Resp 16 08/27/23 13:25 BP 138/67 08/27/23 13:25 Pulse Ox 99 08/27/23 13:25 FiO2 Intake & Output 08/26/23 08/27/23 08/27/23 18:59 06:59 18:59 Intake Total 200 1050 Balance 200 1050 Intake: IV 200 Intake, IV Titration 500 Amount Vancomycin 1,500 mg In 500 Sodium Chloride 0.9% 500 ml 500 ml @ 167 mls/hr IVPB Q12H [facility] Rx#: [id number] Oral 550 Other: Voiding Method Toilet Toilet Toilet Urinal Urinal Urinal # Voids 3 4 # Bowel Movements 1 - Labs CBC & Chem 7: 08/23/23 06:30 08/27/23 03:42 Labs: Abnormal Lab Results - Last 24 Hours (Table) 08/23/23 Range/Units 06:30 HDL Cholesterol 39.30 L (40.00-60.00) mg/dL Microbiology - Last 24 Hours (Table) 08/25/23 06:27 Blood Culture - Preliminary Blood Assessment and Plan Assessment: This is a 78-year-old gentleman with history of diabetes, hypertension who presented emergency department on 08/22/2023 after a fall at home. In the ED was felt that the patient had NIH stroke scale was 0 but had asymmetry of MCA on imaging but there is no thrombus. No IV TPA since no deficits on presentation and risk outweigh the benefit. Also no intervention since no thrombus. But today per nurse had right upper extremity weakness and unsure last normal. Acute ischemic stroke (scattered small foci over the left fronto/parietal as well temporal/occipital region and largest foci over the frontal. symptoms right upper extremity weakness more than the right lower extremity weakness and the mild right nasolabial flattening. : IV TPA since unknown last normal. Etiology seems emblic in nature. Left ICA of 55% stenosis. Vascular asymmetry of distal left MCA on right. Diabetes Hypertension Arachnoid cyst over the right middle cranial fossa on CT Tobacco use Plan: MRA head and neck revealed no evidence of intracranial aneurysm or significant stenosis. No evidence of significant stenosis at the carotid bifurcations. The carotid and vertebral arteries are patent. No evidence of aneurysm. Regarding vascular asymmetry on CTA for left MCA. There was no thrombus noted and in ED he had NIH stroke scale of 0 per ED team so no intervention. Lipid panel cholesterol 93, LDL 42, HDL 39, triglycerides 56.5. Continue Lipitor 40 mg daily. Hemoglobin A1c 6.0, TSH normal at 0.878. Patient was started on aspirin 81 mg daily and Plavix 75mg daily (both new during this admission). Recommend continue dual antiplatelet medication for 21 days, then stop Plavix and continue aspirin 81 mg indefinitely. Continue Lipitor 40 mg daily at bedtime for secondary stroke prophylaxis. Continue Neuro checks Cardiac monitoring. Recommend a transesophageal echocardiogram and if negative recommend an event monitor for 30 days. PT OT and AUTOTRANSFUSIONIST are consulted Blood pressure is well controlled. Target blood pressure < 130/80. Recommend complete tobacco cessation. We'll defer the rest of the medical management to primary team For DVT prophylaxis: Continue subcu heparin 5000 that every 12 hours Neurologically clear for discharge. Recommend follow-up with neurologist in 2-3 weeks for a follow-up.
[2023-08-27] MEDS: ATORVASTATIN 40 MG TAB PO SCH (20:47)
[2023-08-28] MEDS: VANCOMYCIN 1,500 MG in SODIUM CHLORIDE 0.9% 500 ML 500 ML IVPB SCH ×2 (04:10→10:27)
[2023-08-28 06:49] LABS: African American GFR (CKD) >90 (>60 ml/min/1.73 sqM); Non-African American GFR(CKD) 83 (>60 ml/min/1.73 sqM)
[2023-08-28 08:12] VITALS: RESP 18
[2023-08-28] MEDS ORDERED: Acetaminophen-Codeine 300-30mg TAB PO PRN (08:40)
[2023-08-28] MEDS: ASPIRIN 81 MG PO SCH (09:31)
[2023-08-28] MEDS: CLOPIDOGREL 75 MG TAB PO SCH (09:32)
[2023-08-28] MEDS: HEPARIN SODIUM,PORCINE 5,000 UNIT/ML 1 ML VIAL SQ SCH (09:32)
[2023-08-28] MEDS: amLODIPine 5 MG TAB PO SCH (09:32)
[2023-08-28] MEDS: TAMSULOSIN 0.4 MG CAP.ER.24H PO SCH (09:32)
[2023-08-28] MEDS: lisinopriL 10 MG TAB PO SCH (09:32)
--- NOTE | 2023-08-28 11:34 | P.PN ---
Subjective Progress Note Date: 08/28/23 Principal diagnosis: Carotid stenosis She was seen and examined today as a follow-up. Continues without any complaints or new focal deficits. He underwent MRA head and neck which reported no evidence of intracranial aneurysm or significant stenosis. No evidence of significant stenosis at the carotid bifurcations. The carotid and vertebral arteries are patent. No evidence of aneurysm. Objective - Vital Signs Vital signs: Vital Signs Temp 98.2 F 08/28/23 07:19 Pulse 68 08/28/23 07:19 Resp 18 08/28/23 07:19 BP 131/78 08/28/23 07:19 Pulse Ox 99 08/28/23 07:19 FiO2 Intake & Output 08/27/23 08/28/23 08/28/23 18:59 06:59 18:59 Intake Total 1050 Balance 1050 Intake: Intake, IV Titration 500 Amount Vancomycin 1,500 mg In 500 Sodium Chloride 0.9% 500 ml 500 ml @ 167 mls/hr IVPB Q12H [facility] Rx#: [id number] Oral 550 Other: Voiding Method Toilet Toilet Urinal Urinal # Voids 4 2 # Bowel Movements 1 - Exam General appearance: The patient is alert, oriented, appears in no acute distress. HET: Head is normocephalic and atraumatic. Pupils are equal and reactive. Neck: Supple. Abdomen: Soft, nondistended. Extremities: Normal skin color and turgor. Neurological: No focal deficits. Strength and sensation are grossly intact. - Labs CBC & Chem 7: 08/23/23 06:30 08/28/23 06:03 Labs: Microbiology - Last 24 Hours (Table) 08/25/23 06:27 Blood Culture - Preliminary Blood Assessment and Plan Assessment: 1. Mild left ICA stenosis close to 50% on CT angiogram, possible left ICA aneurysm 2. Multiple small left-sided multifocal infarcts, consider shower emboli Plan: Continue dual antiplatelet therapy and statin. Recommend medical optimization with best medical therapy. MRA head and neck personally reviewed by Dr. Hodges, and agrees with reading. There is no indication for any vascular surgical intervention. Patient can follow up outpatient for carotid surveillance as needed. This was discussed with the patient and he verbalized understanding. Thank you for this consultation, we will sign off at this time. Dr. Hodges I performed a history and examination of this patient, discussed the same with the dictator. I agree with the dictator's note ,documented as a scribe. Any additional findings or plans will be noted.
[2023-08-28 12:09] VITALS: BMI 30.1
--- NOTE | 2023-08-28 12:52 | P.PN ---
Subjective Progress Note Date: 08/28/23 HPI: Patient is a 78-year-old male with a past medical history includes diabetes mellitus, hyperlipidemia, and hypertension who presents to the hospital post fall. It is reported the patient fell at home and had a witnessed fall. Patient reports that his legs just gave out and he was unable to support h imself. Patient was noted to be confused in the emergency department. Family reports the patient is normally able to ambulate. Patient had multiple imaging studies done which were negative for any acute process or fracture. Brain CT was negative for obvious stroke, however MRI was recommended. The patient has continued to remain weak in his bilateral lower extremities with confusion noted. An MRI of the brain was ordered, which did demonstrate multiple small acute cortical infarct scattered throughout the left cerebral hemisphere involving the frontal parietal lobes consistent with shower emboli. Cardiology was consulted to assist in finding the etiology of the emboli. Today the new ent reports that he's feeling okay. He continues to report weakness in his bilateral lower extremities and does demonstrate some confusion with questions. REVIEW OF LABS, ECG & MEDICAL DATA: LABS: White count 15.4, hemoglobin 14.4, platelets 184, sodium 136, potassium 4.0, BUN 12.7, creatinine 0.9, calcium 8.5 troponin less than 0.012 EKG: EKG from 08/22/2023 demonstrates sinus tachycardia IMAGING: X-ray pelvis dated 08/14/2023 demonstrates no acute fracture or dislocation seen. Chest x-ray dated 08/22/2023 demonstrates no evidence for acute pulmonary disease. X-ray from right forearm dated 08/22/2023 demonstrates no acute fracture or dislocation. CT of the brain without contrast dated 08/22/2023 demonstrates age-related atrophic atrophic and chronic small vessel ischemic change without acute intracranial process seen at this time, arachnoid cyst. CT of the lumbar spine dated 08/22/2023 demonstrates multilevel degenerative disc disease, mild central stenosis at L3-4 bilateral lateral recess stenosis, bilateral lateral recess stenosis at L4-5. CT angiogram of the head and neck dated 08/22/2023 demonstrates long segment soft plaque proximal left ICA with estimated diameter reduction of 55%, vascular asymmetry of distal left MCA branches relative to the right, correlate clinically. Echocardiogram dated 08/23/2023 demonstrates technically difficult study, endocardial margins are not very well seen, normal LV size and systolic function with mild to moderate concentric LVH, aortic valve sclerosis and mitral annular calcification and mild mitral and tricuspid regurgitation, no pericardial effusion. MRI of brain dated 08/24/2023 demonstrates multiple small acute cortical infarct scattered throughout the left cerebral hemisphere involving the frontal and parietal lobes, the findings are consistent with shower emboli. VITALS: Temp 96.9, pulse 84, respirations 19, blood pressure 135/85, O2 saturation 98% on room air 08/26 The patient is seen today in follow-up. He is scheduled for AIDEE today. No complaints of chest pain. Yesterday, lisinopril was increased to 10 mg twice daily. Blood pressure is running 120/62 this morning heart rate is in the 70s to 90s. 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 He also had a loop recorder placed. Loop recorder surgical site shows no signs of infection. He is scheduled and waiting for MRI. No new concerns from the patient. No chest pain, no lightheadedness no palpitations. 08/28 Patient is seen today in follow-up. Loop monitor has no sign of infection. He underwent MRA yesterday which revealed no evidence of intracranial aneurysm or significant stenosis. No evidence of significant stenosis of the carotid bifurcations. Carotid and vertebral arteries are patent. No evidence of aneurysm. Patient is waiting for insurance authorization for subacute rehab at [facility]. EXAMINATION: GENERAL: Well-appearing, well-nourished and in no acute distress. NECK: Supple without JVD or thyromegaly. LUNGS: Breath sounds clear to auscultation bilaterally. Respiration equal and unlabored. No wheezes, rales or rhonchi. HEART: Regular rate and rhythm without murmurs, rubs or gallops. S1 and S2 heard. EXTREMITIES: No edema. No clubbing or cyanosis. Peripheral pulses intact and strong. IMPRESSION: 1. Left cerebral hemisphere infarct, with shower emboli noted. 2. Hypertension 3. Fall from standing PLAN: Patient is status post AIDEE and loop recorder Continue lisinopril 10 mg twice a day. Patient is cleared for discharge from cardiology and may follow-up in the office in 6 weeks. Cardiology will sign off this case and follow on an as-needed basis. Please reconsult for any new concerns. Thank you for the consult and allowing us to participate in the care of this patient. Objective - Vital Signs Vital signs: Vital Signs Temp 98.2 F 08/28/23 07:19 Pulse 68 08/28/23 07:19 Resp 18 08/28/23 07:19 BP 131/78 08/28/23 07:19 Pulse Ox 99 08/28/23 07:19 FiO2 Intake & Output 08/27/23 08/28/23 08/28/23 18:59 06:59 18:59 Intake Total 1050 Balance 1050 Weight 89.811 kg Intake: Intake, IV Titration 500 Amount Vancomycin 1,500 mg In 500 Sodium Chloride 0.9% 500 ml 500 ml @ 167 mls/hr IVPB Q12H [facility] Rx#: [id number] Oral 550 Other: Voiding Method Toilet Toilet Urinal Urinal # Voids 4 2 # Bowel Movements 1 - Labs CBC & Chem 7: 08/23/23 06:30 08/28/23 06:03 Labs: Microbiology - Last 24 Hours (Table) 08/25/23 06:27 Blood Culture - Preliminary Blood
--- NOTE | 2023-08-28 14:15 | P.DS ---
Providers Date of admission: 08/22/23 18:42 Expected date of discharge: 08/28/23 Attending physician: Radha Ruby MD Consults: 08/22/23 18:42 Consult Physician Routine Consulting Provider: Pj Anderson Consult Reason/Comments: confusion Do you want consulting provider notified?: Yes 08/24/23 14:35 Consult Physician Routine Consulting Provider: Sherif Campbell Consult Reason/Comments: possible AIDEE for embolic CVA Do you want consulting provider notified?: Yes 08/25/23 12:17 Consult Physician Routine Consulting Provider: Salina Hernadez Consult Reason/Comments: left ica stenosis and stroke on left hemisphere Do you want consulting provider notified?: Yes Primary care physician: Anup Ley [facility] Hospital Course: Discharge Diagnosis: Acute ischemic stroke, multifocal, likely embolic Left ICA 55% stenosis Blood cultures positive for coag-negative staph epidermidis E. coli UTI, suspected Type 2 diabetes Hypertension Nicotine dependence Hospital Course: 78-year-old male with a PMH of type II DM, hypertension, hyperlipidemia who was brought into the emergency room by EMS for fall and weakness. CT angiogram of the head and neck in the emergency room revealed vascular asymmetry of the distal left MCA relative to the right with no other acute abnormalities. CT brain was unremarkable with CT lumbar spine also unremarkable. EKG revealed sinus tachycardia at 116 bpm. Chest x-ray was unremarkable. Forearm x-ray was unremarkable. Pelvis x-ray was unremarkable. Laboratory evaluation remarkable for leukocytosis of 15.3, hyponatremia with sodium 132, troponin less than 0.012, with UA indeterminate. Echo shows EF 55-60% with LV thickness. MRI brain shows multiple small acute cortical infarcts scattered throughout the left cerebral hemisphere. BCx + staph epi x 2, patient is switched to Vancomycin dosed per pharmacy. Urine culture positive for Ecoli. also on rocephin. Cardiology will be consulted for AIDEE and embolic workup. AIDEE did not show any thrombus or shunt, loop recorder also place. MRI head, MRA head showed no significant stenosis at the carotid bifurcations, vascular surgery was consulted, outpatient follow-up. Positive blood cultures likely secondary to contamination. Vancomycin discontinued. Patient will complete 5 day course of cephalosporins total. Does not have any urinary signs or symptoms. Longer course of antibiotics not warranted. Patient will follow-up with cardiology, vascular surgery, PCP, and neurology. Patient seen and examined at bedside. Vital signs reviewed and stable. General: nontoxic, no distress, appears at stated age Derm: warm, dry Head: atraumatic, normocephalic, symmetric Eyes: EOMI, no lid lag, anicteric sclera Mouth: no lip lesion, mucus membranes moist Cardiovascular: S1S2 reg, no murmur Lungs: CTA bilateral, no rhonchi, no rales , no accessory muscle use Abdominal: soft, nontender to palpation, no guarding, no appreciable organomegaly Ext: no gross muscle atrophy, no edema, no contractures Neuro: CN II-XI grossly intact, no focal neuro deficits Psych: Alert, oriented, appropriate affect A total of 33 minutes of time were spent preparing this complex discharge summary. Patient was discharged on 08/28/23 at 14:07. Patient Condition at Discharge: Stable Plan - Discharge Summary Discharge Rx Participant: Yes New Discharge Prescriptions: New Aspirin 81 mg PO DAILY #60 tab Clopidogrel [Plavix] 75 mg PO DAILY #16 tab Cefdinir 300 mg PO Q12HR #2 cap Continue metFORMIN HCL [Glucophage] 1,000 mg PO BID Simvastatin [Zocor] 20 mg PO HS amLODIPine BESYLATE/BENAZEPRIL [amLODIPine BESYLATE/BENAZEPRIL 5-10 mg] 1 cap PO DAILY Tamsulosin HCl [Flomax] 0.4 mg PO DAILY Discharge Medication List Simvastatin [Zocor] 20 mg PO HS 03/07/17 [History] metFORMIN HCL [Glucophage] 1,000 mg PO BID 03/07/17 [History] Tamsulosin HCl [Flomax] 0.4 mg PO DAILY 07/02/23 [History] amLODIPine BESYLATE/BENAZEPRIL [amLODIPine BESYLATE/BENAZEPRIL 5-10 mg] 1 cap PO DAILY 07/02/23 [History] Aspirin 81 mg PO DAILY #60 tab 08/28/23 [Rx] Cefdinir 300 mg PO Q12HR #2 cap 08/28/23 [Rx] Clopidogrel [Plavix] 75 mg PO DAILY #16 tab 08/28/23 [Rx] Follow up Appointment(s)/Referral(s): Bryson North MD [STAFF PHYSICIAN] - 6 Weeks (Device clinic follow-up in one week post implant for suture removal Follow-up with Dr. North in 6-8 weeks) [facility], [NON-STAFF] - As Needed Luciana Ennis MD [REFERRING] - 1 Week Anup Rios MD [Primary Care Provider] - 1-2 days Salina Hernadez DO [STAFF PHYSICIAN] - 6 Weeks Patient Instructions/Handouts: Urinary Tract Infection in Men (DC), Ischemic Stroke (DC) Activity/Diet/Wound Care/Special Instructions: Please see your PCP, vascular surgery, and editor city. Also see a neurologist. Discharge Disposition: HOME WITH HOME HEALTH SERVICES
[2023-08-28 14:44] VITALS: BP 159/81; PULSE 84; TEMP 97.7
[2023-08-28] MEDS ORDERED: VANCOMYCIN 1,500 MG in SODIUM CHLORIDE 0.9% 500 ML 500 ML IVPB SCH (22:00)
[2023-08-29] MEDS ORDERED: VANCOMYCIN TROUGH DUE 1 EACH MISC MISCELLANE ONE (09:00)
== END 2023-08-28 15:55 | disposition home health service (06) | DRG 853 ==
LOC: EC 14:49 → 4SSUR 18:42
PROVIDERS: ADMIT Family Medicine; ATTEND Family Medicine
PROC: 4A1234Z Monitoring of Cardiac Electrical Activity, Percutaneous Approach (ICD-10-PCS; 2023-08-26)
PROC: 0JH632Z Insertion of Monitoring Device into Chest Subcutaneous Tissue and Fascia, Percutaneous Approach (ICD-10-PCS; principal; 2023-08-26 09:30)
PROC: B24BZZ4 Ultrasonography of Heart with Aorta, Transesophageal (ICD-10-PCS; 2023-08-27)
DX: A41.51 Sepsis due to Escherichia coli [E. coli] (principal); G93.41 Metabolic encephalopathy; I63.49 Cerebral infarction due to embolism of other cerebral artery; E87.1 Hypo-osmolality and hyponatremia; N39.0 Urinary tract infection, site not specified; E11.9 Type 2 diabetes mellitus without complications; G83.21 Monoplegia of upper limb affecting right dominant side; Z11.52 Encounter for screening for COVID-19; Z28.310 Unvaccinated for COVID-19; I65.22 Occlusion and stenosis of left carotid artery; I08.3 Combined rheumatic disorders of mitral, aortic and tricuspid valves; R29.700 NIHSS score 0; G93.0 Cerebral cysts; I10 Essential (primary) hypertension; M51.36 Other intervertebral disc degeneration, lumbar region; S50.811A Abrasion of right forearm, initial encounter; E78.5 Hyperlipidemia, unspecified; F17.210 Nicotine dependence, cigarettes, uncomplicated; Z71.6 Tobacco abuse counseling; Z79.84 Long term (current) use of oral hypoglycemic drugs; Z79.899 Other long term (current) drug therapy; W18.30XA Fall on same level, unspecified, initial encounter; Y92.009 Unspecified place in unspecified non-institutional (private) residence as the place of occurrence of the external cause
CPT/HCPCS: 33285; 36410; 36415; 70450; 70496; 70498; 70544; 70549; 70553; 71046; 72131; 72170; 76937; 80048; 80053; 80061; 80202; 81001; 82565; 83036; 83605; 83735; 84443; 84484; 85025; 85610; 85730; 87040; 87077; 87086; 87186; 87636; 93005; 93306; 93312; 93320; 93325; 94760; 96361; 96365; 96366; 99291

== ENCOUNTER 2024-05-26 07:37 | Day surgery (SDC) | payer MEDICARE ==
[~2024-05-26 07:37] MED LIST: HEPARIN SODIUM,PORCINE 5,000 UNIT/ML 1 ML VIAL SQ PRN
[2024-05-26] MEDS ORDERED: HYDROmorphone 0.5 MG/0.5 ML SYRINGE IVP PRN (07:59)
[2024-05-26] MEDS ORDERED: MIDAZOLAM 2 MG/2 ML VIAL IV PRN (07:59)
[2024-05-26] MEDS: IV FLUID CONTINUATION 1,000 ML IV ONE (08:06)
[2024-05-26 08:35] LABS: Glucose,Whole Blood 132 mg/dL (70-110)
[2024-05-26] MEDS: DEXAMETHASONE SOD PHOSPHATE 4 MG/ML 1 ML VIAL IV ONE (08:47)
[2024-05-26] MEDS: ONDANSETRON 4 MG/2 ML VIAL IVP ONE (08:47)
[2024-05-26] MEDS: ACETAMINOPHEN TAB 500 MG TAB PO PRN (08:47)
[2024-05-26] MEDS: LACTATED RINGERS 1,000 ML IV SCH (08:47)
[2024-05-26] MEDS ORDERED: LIDOCAINE 1% INJ 10MG/ML (20 ML MDV) ONE (09:01)
[2024-05-26] MEDS ORDERED: ROCURONIUM 10 MG/ML (5 ML VIAL) IV ONE (09:01)
[2024-05-26] MEDS ORDERED: fentaNYL (PF) 50 MCG/ML 2 ML AMP ONE (09:01)
[2024-05-26] MEDS ORDERED: HYDROmorphone (PF) 1 MG/ML ONE (09:01)
[2024-05-26] MEDS ORDERED: GLYCOPYRROLATE 0.2 MG/ML 2 ML VIAL ONE (09:01)
[2024-05-26] MEDS ORDERED: NEOSTIGMINE 1 MG/ML 10 ML VIAL ONE (09:01)
[2024-05-26] MEDS ORDERED: PROPOFOL 10 MG/ML 20 ML VIAL IV ONE (09:01)
[2024-05-26] MEDS ORDERED: LABETALOL 5 MG/ML VIAL MDV ONE (09:01)
[2024-05-26] MEDS ORDERED: SUCCINYLCHOLINE CHLORIDE 200 MG/10 ML VIAL IV ONE (09:01)
[2024-05-26] MEDS: LIDOCAINE 1%-EPI 1:100,000 20 ML VIAL SQ ONE (09:25)
--- NOTE | 2024-05-26 09:59 | P.OP ---
Date of Procedure: 05/26/24 Preoperative Diagnosis: cholelithiasis Cholecystitis Postoperative Diagnosis: cholelithiasis Cholecystitis Procedure(s) Performed: laparoscopic cholecystectomy Anesthesia: ROSA Surgeon: Parveen Sesay Estimated Blood Loss (ml): 5 Pathology: other (gallbladder) Condition: stable Disposition: PACU Description of Procedure: The patient was placed on the operating table. The patient received a general endotracheal tube anesthesia. The patients abdomen was prepped and draped in the usual sterile fashion. Through an infraumbilical stab incision, the fascia of the anterior abdominal wall was grasped with a pair of Kochers and then the Veress needle was placed in the peritoneal cavity. Position of the Veress needle was confirmed with positive drop test. The abdomen was then insufflated. After adequate insufflation, the 10 mm trocar was placed in the peritoneal cavity. Following this the laparoscope was placed in the peritoneal cavity. The patient was placed in the head-up, right side up position and then a 5 mm trocar was placed in the right lateral and right subcostal position under direct visualization. A 8 mm trocar was placed in the epigastric position. The gallbladder was grasped in the fundus and infundibulum. Traction on the gallbladder was placed in the lateral and the cephalad positions. The triangle of Calot was visualized.. The cystic duct was bluntly dissected until the union of the cystic duct and common bile duct wa s seen. A critical view of safety was achieved. The cystic duct was then divided and sealed with the Harmonic scissors. A PDS Endoloop was then placed throughout the cystic duct stump. The cystic artery divided and sealed with the Harmonic scissors. The gallbladder was then removed from the liver bed using Harmonic scissors. The gallbladder was then extracted through the epigastric port site. Operative field was checked for any bleeding spots and Harmonic scissors was used to coagulate the liver bed. The abdomen was irrigated. The trocars were removed. The skin was closed using interrupted 3-0 Vicryl suture. Dermabond dressing were applied. The patient tolerated the procedure well.
[2024-05-26 10:05] VITALS: TEMP 97
[2024-05-26 11:00] VITALS: BP 127/72; PULSE 76; RESP 15
== END 2024-05-26 11:24 | disposition home or self-care (01) ==
LOC: OR 07:37
PROVIDERS: ATTEND Surgery
DX: K80.10 Calculus of gallbladder with chronic cholecystitis without obstruction (principal); I10 Essential (primary) hypertension; E78.5 Hyperlipidemia, unspecified; E11.9 Type 2 diabetes mellitus without complications; F17.210 Nicotine dependence, cigarettes, uncomplicated; Z86.73 Personal history of transient ischemic attack (TIA), and cerebral infarction without residual deficits; Z79.84 Long term (current) use of oral hypoglycemic drugs
CPT/HCPCS: 47562; 88304; J0330; J1100; J2710; J0690; J2405; J2001; J3010; J1170; J2704; J1920; J1596

== ENCOUNTER → 2024-06-24 | Outpatient (CLI) | payer MEDICARE, OTHER ==
--- NOTE | 2024-06-24 15:12 | CT ---
EXAMINATION TYPE: CT brain wo con, CT orbits wo con DATE OF EXAM: 06/24/2024 COMPARISON: 08/22/2023 HISTORY: 79-year-old male H05.242, constant left eye exophthalmos, Left watery eye x 2 months, patien t states symptom is constant TECHNIQUE: CT of the brain and orbits without intravenous contrast. Coronal and sagittal reconstruct ions performed. CT DLP: COMBINED 1461 mGycm Automated exposure control for dose reduction was used. FINDINGS: Brain: Stable 4.2 x 2.5 cm CSF space anterior aspect of the right middle cranial fossa is suggestive of an a rachnoid cyst. Mild generalized supratentorial volume loss especially along the superior convexities. At this chronic calcifications in the carotid siphons. There is no evidence of acute intracranial h emorrhage, acute ischemic changes, mass effect, or other extra-axial fluid collection. There is no e ffacement of cerebral sulci or basal subarachnoid cisterns. There is no hydrocephalus. There is no midline shift. Julian-white matter distinction is preserved. Mastoid air cells and middle ear cavities are well pneumatized. Cerumen in right external auditory ca nal. Orbits: Leftward nasal septal deviation. Suspect old healed fracture of the anterior nasal septum. There is slight left globe exophthalmos. However, the superior ophthalmic veins, optic nerves, extrao cular muscles, and intraorbital retrobulbar are soft tissues show no evident abnormality. Globes appe ar symmetric and intact. Paranasal sinuses well pneumatized though the frontal sinuses are hypoplastic. IMPRESSION: Brain: 1. No acute intracranial abnormality seen. 2. Mild cerebral cortical atrophy. 3. Stable 4.2 cm arachnoid cyst anterior right middle cranial fossa. Orbits: 4. Slight left globe exophthalmos but without any intraorbital abnormality otherwise identified.
== END | disposition home or self-care (01) ==
LOC: RADCTMAIN 14:09
PROVIDERS: ATTEND Ophthalmology
DX: H04.572 Stenosis of left lacrimal sac (principal); H05.242 Constant exophthalmos, left eye; G31.9 Degenerative disease of nervous system, unspecified; G93.0 Cerebral cysts
CPT/HCPCS: 70450; 70480

== ENCOUNTER 2024-09-07 09:54 | Emergency (ER) | payer MEDICARE ==
[2024-09-07 10:18] VITALS: TEMP 98
[2024-09-07 10:51] LABS: Basophils % (A) 0 %; Eosinophils # (A) 0.2 k/uL (0-0.7); Eosinophils % (A) 3 %; HCT 44.7 % (39.0-53.0); HGB 14.7 gm/dL (13.0-17.5); Lymphocytes # (A) 0.9 k/uL (1.0-4.8); Lymphocytes % (A) 13 %; MCH 31.2 pg (25.0-35.0); MCV 94.8 fL (80.0-100.0); Mean Platelet Volume 8.1; Monocytes # (A) 0.4 k/uL (0-1.0); Monocytes % (A) 6 %; Neutrophils # (A) 5.3 k/uL (1.3-7.7); Neutrophils % (A) 76 %; Platelet Count 189 k/uL (150-450); RBC 4.71 m/uL (4.30-5.90); RDW 14.1 % (11.5-15.5)
--- NOTE | 2024-09-07 10:51 | ED ---
Abdominal Pain HPI - General Chief Complaint: Abdominal Pain Stated Complaint: abd pain Time Seen by Provider: 09/07/24 10:06 Source: patient, RN notes reviewed Mode of arrival: ambulatory Limitations: no limitations - History of Present Illness Initial Comments: This is a 79-year-old male presenting with nieces with history of CVA, diabetes with right lower quadrant pain x 7 hours. Patient states pain was sudden onset while sleeping, described as intermittent and stabbing. Patient denies pain currently patient states he smokes 1 pack/day and still has his appendix. He states patient has had this type of right lower quadrant pain before and was diagnosed with constipation, stating patient does not drink water often. Denies fever, chills, nausea, vomiting, diarrhea, constipation, hematochezia, melena, urinary symptoms, lower extremity pain/pallor. MD Complaint: abdominal pain Onset/Timin -: hour(s) Location: RLQ Radiation: none Migration to: no migration Severity: moderate Quality: stabbing Consistency: intermittent Improves With: nothing Worsens With: nothing Associated Symptoms: denies other symptoms - Related Data Home Medications Medication Instructions Recorded Confirmed Simvastatin [Zocor] 20 mg PO HS 03/07/17 09/07/24 metFORMIN HCL [Glucophage] 1,000 mg PO DAILY 03/07/17 09/07/24 Tamsulosin HCl [Flomax] 0.4 mg PO DAILY 07/02/23 09/07/24 amLODIPine BESYLATE/BENAZEPRIL 1 cap PO DAILY 07/02/23 09/07/24 [amLODIPine BESYLATE/BENAZEPRIL 5-10 mg] Doxazosin [Cardura] 4 mg PO DAILY 09/07/24 09/07/24 Previous Rx's Medication Instructions Recorded Aspirin 81 mg PO DAILY #60 tab 08/28/23 Allergies Allergy/AdvReac Type Severity Reaction Status Date / Time No Known Allergies Allergy Verified 09/07/24 10:35 Review of Systems ROS Statement: Those systems with pertinent positive or pertinent negative responses have been documented in the HPI. ROS Other: All systems not noted in ROS Statement are negative. Past Medical History Past Medical History: CVA/TIA, Diabetes Mellitus, Hearing Disorder / Deafness, Hyperlipidemia, Hypertension Additional Past Medical History / Comment(s): pt. states had a stroke about 6 months ago; "steady humming in ears" used to have hearing aids but they were stolen and doesn't have new ones yet. History of Any Multi-Drug Resistant Organisms: None Reported Past Surgical History: No Surgical Hx Reported Additional Past Surgical History / Comment(s): nose surg 19 yrs old Past Anesthesia/Blood Transfusion Reactions: No Reported Reaction Past Psychological History: No Psychological Hx Reported Smoking Status: Current every day smoker Past Alcohol Use History: None Reported Past Drug Use History: None Reported - Past Family History Father Family Medical History: Unable to Obtain General Exam Limitations: no limitations General appearance: alert, in no apparent distress Head exam: Present: atraumatic, normocephalic, normal inspection Eye exam: Present: normal appearance, PERRL, EOMI. Absent: scleral icterus, conjunctival injection, periorbital swelling ENT exam: Present: normal exam, mucous membranes moist Neck exam: Present: normal inspection. Absent: tenderness, meningismus, lymphadenopathy Respiratory exam: Present: normal lung sounds bilaterally. Absent: respiratory distress, wheezes, rales, rhonchi, stridor Cardiovascular Exam: Present: regular rate, normal rhythm, normal heart sounds. Absent: systolic murmur, diastolic murmur, rubs, gallop, clicks GI/Abdominal exam: Present: soft, tenderness (Positive right lower quadrant tenderness without guarding. Negative McBurney's point.), normal bowel sounds. Absent: distended, guarding, rebound, rigid Extremities exam: Present: normal inspection (Negative lower extremity edema. Bilateral posterior tibialis pulses +2), full ROM, normal capillary refill. Absent: tenderness, pedal edema, joint swelling, calf tenderness Back exam: Present: normal inspection Neurological exam: Present: alert, oriented X3, CN II-XII intact Psychiatric exam: Present: normal affect, normal mood Skin exam: Present: warm, dry, intact, normal color. Absent: rash Course Vital Signs 09/07/24 09/07/24 10:14 12:46 Temperature 98.0 F Pulse Rate 71 72 Respiratory 18 16 Rate Blood Pressure 158/77 165/85 O2 Sat by Pulse 99 99 Oximetry Medical Decision Making - Medical Decision Making Was pt. sent in by a medical professional or institution (, PA, ENVIRONMENTAL AUDITOR, urgent care, hospital, or [facility]...) When possible be specific @ -No Did you speak to anyone other than the patient for history (EMS, parent, family, police, friend...)? What history was obtained from this source @ -No Did you review nursing and triage notes (agree or disagree)? Why? @ -I reviewed and agree with nursing and triage notes Were old charts reviewed (outside hosp., previous admission, EMS record, old EKG, old radiological studies, urgent care reports/EKG's, [facility] records)? Report findings @ -No old charts were reviewed Differential Diagnosis (chest pain, altered mental status, abdominal pain women, abdominal pain men, vaginal bleeding, weakness, fever, dyspnea, syncope, headache, dizziness, GI bleed, back pain, seizure, CVA, palpatations, mental health, musculoskeletal)? @ -Differential Abdominal Pain Men: Appendicitis, cholecystitis, diverticulosis, ischemic bowel, pancreatitis, hepatitis, UTI, gastroenteritis, AAA, incarcerated hernia, bowel obstruction, constipation, inflammatory bowel, hepatitis, peptic ulcer disease, splenic infarction, perforated viscus, testicular torsion, this is not meant to be an all-inclusive list EKG interpreted by me (3pts min.). @ -Sinus rhythm without ST elevation, ST depression, T wave inversion. V entricular rate 72 bpm, [place] interval 201 ms, QRS duration 89 ms, QT/QTc 384/409 ms. X-rays interpreted by me (1pt min.). @ -None done CT interpreted by me (1pt min.). @ -CT abdomen with with contrast revealed left lower quadrant diverticulosis but imaging was otherwise benign. U/S interpreted by me (1pt. min.). @ -None done What testing was considered but not performed or refused? (CT, X-rays, U/S, labs)? Why? @ -None What meds were considered but not given or refused? Why? @ -None Did you discuss the management of the patient with other professionals (professionals i.e. , PA, ENVIRONMENTAL AUDITOR, lab, RT, psych nurse, social worker clinical, associate drafter, teacher, school services officer, dependency case manager)? Give summary @ -No Was smoking cessation discussed for >3mins.? @ -No Was critical care preformed (if so, how long)? @ -No Were there social determinants of health that impacted care today? How? (Homelessness, low income, unemployed, alcoholism, drug addiction, transportation, low edu. Level, literacy, decrease access to med. care, long-term, rehab)? @ -No Was there de-escalation of care discussed even if they declined (Discuss DNR or withdrawal of care, Hospice)? DNR status @ -No What co-morbidities impacted this encounter? (DM, HTN, Smoking, COPD, CAD, Cancer, CVA, ARF, Chemo, Hep., AIDS, mental health diagnosis, sleep apnea, morbid obesity)? @ -DM, CVA, smoking Was patient admitted / discharged? Hospital course, mention meds given and route, prescriptions, significant lab abnormalities, going to OR and other pertinent info. @ -Discharge. Abdominal CT benign. Lab work also unremarkable. Patient discharged and advised to return if symptoms worsen. Undiagnosed new problem with uncertain prognosis? @ -No Drug Therapy requiring intensive monitoring for toxicity (Heparin, Nitro, Insulin, Cardizem)? @ -No Were any procedures done? @ -No Diagnosis/symptom? @ -Abdominal pain Acute, or Chronic, or Acute on Chronic? @ -Acute Uncomplicated (without systemic symptoms) or Complicated (systemic symptoms)? @ -Uncomplicated Side effects of treatment? @ -No Exacerbation, Progression, or Severe Exacerbation? @ -No Poses a threat to life or bodily function? How? (Chest pain, USA, MA, pneumonia, PE, COPD, DKA, ARF, appy, cholecystitis, CVA, Diverticulitis, Homicidal, Suicidal, threat to staff... and all critical care pts) @ -No - Lab Data Result diagrams: 09/07/24 10:42 09/07/24 10:42 Lab Results 09/07/24 09/07/24 09/07/24 Range/Units 10:42 10:42 10:42 WBC 7.0 (3.8-10.6) k/uL RBC 4.71 (4.30-5.90) m/uL Hgb 14.7 (13.0-17.5) gm/dL Hct 44.7 (39.0-53.0) % MCV 94.8 (80.0-100.0) fL MCH 31.2 (25.0-35.0) pg MCHC 33.0 (31.0-37.0) g/dL RDW 14.1 (11.5-15.5) % Plt Count 189 (150-450) k/uL MPV 8.1 Neutrophils % 76 % Lymphocytes % 13 % Monocytes % 6 % Eosinophils % 3 % Basophils % 0 % Neutrophils # 5.3 (1.3-7.7) k/uL Lymphocytes # 0.9 L (1.0-4.8) k/uL Monocytes # 0.4 (0-1.0) k/uL Eosinophils # 0.2 (0-0.7) k/uL Basophils # 0.0 (0-0.2) k/uL Sodium 139 (137-145) mmol/L Potassium 4.4 (3.5-5.1) mmol/L Chloride 110 H (98-107) mmol/L Carbon Dioxide 24 (22-30) mmol/L Anion Gap 5 mmol/L BUN 26 H (9-20) mg/dL Creatinine 0.93 (0.66-1.25) mg/dL Est GFR (CKD-EPI)AfAm 90 (>60 ml/min/1.73 sqM) Est GFR (CKD-EPI)NonAf 78 (>60 ml/min/1.73 sqM) Glucose 141 H (74-99) mg/dL Plasma Lactic Acid Vaibhav 1.0 (0.7-2.0) mmol/L Calcium 9.0 (8.4-10.2) mg/dL Total Bilirubin 0.9 (0.2-1.3) mg/dL AST 18 (17-59) U/L ALT 15 (4-49) U/L Alkaline Phosphatase 57 (38-126) U/L Total Protein 6.4 (6.3-8.2) g/dL Albumin 3.9 (3.5-5.0) g/dL Amylase 45 (30-110) U/L Lipase 93 (23-300) U/L Urine Color Urine Appearance (Clear) Urine pH (5.0-8.0) Ur Specific Butler (1.001-1.035) Urine Protein (Negative) Urine Glucose (UA) (Negative) Urine Ketones (Negative) Urine Blood (Negative) Urine Nitrite (Negative) Urine Bilirubin (Negative) Urine Urobilinogen (<2.0) mg/dL Ur Leukocyte Esterase (Negative) Urine RBC (0-5) /hpf Urine WBC (0-5) /hpf Urine Mucus (None) /hpf 09/07/24 Range/Units 11:25 WBC (3.8-10.6) k/uL RBC (4.30-5.90) m/uL Hgb (13.0-17.5) gm/dL Hct (39.0-53.0) % MCV (80.0-100.0) fL MCH (25.0-35.0) pg MCHC (31.0-37.0) g/dL RDW (11.5-15.5) % Plt Count (150-450) k/uL MPV Neutrophils % % Lymphocytes % % Monocytes % % Eosinophils % % Basophils % % Neutrophils # (1.3-7.7) k/uL Lymphocytes # (1.0-4.8) k/uL Monocytes # (0-1.0) k/uL Eosinophils # (0-0.7) k/uL Basophils # (0-0.2) k/uL Sodium (137-145) mmol/L Potassium (3.5-5.1) mmol/L Chloride (98-107) mmol/L Carbon Dioxide (22-30) mmol/L Anion Gap mmol/L BUN (9-20) mg/dL Creatinine (0.66-1.25) mg/dL Est GFR (CKD-EPI)AfAm (>60 ml/min/1.73 sqM) Est GFR (CKD-EPI)NonAf (>60 ml/min/1.73 sqM) Glucose (74-99) mg/dL Plasma Lactic Acid Vaibhav (0.7-2.0) mmol/L Calcium (8.4-10.2) mg/dL Total Bilirubin (0.2-1.3) mg/dL AST (17-59) U/L ALT (4-49) U/L Alkaline Phosphatase (38-126) U/L Total Protein (6.3-8.2) g/dL Albumin (3.5-5.0) g/dL Amylase (30-110) U/L Lipase (23-300) U/L Urine Color Colorless Urine Appearance Clear (Clear) Urine pH 5.5 (5.0-8.0) Ur Specific Butler 1.027 (1.001-1.035) Urine Protein Negative (Negative) Urine Glucose (UA) Negative (Negative) Urine Ketones Negative (Negative) Urine Blood Trace H (Negative) Urine Nitrite Negative (Negative) Urine Bilirubin Negative (Negative) Urine Urobilinogen <2.0 (<2.0) mg/dL Ur Leukocyte Esterase Negative (Negative) Urine RBC 2 (0-5) /hpf Urine WBC 1 (0-5) /hpf Urine Mucus Rare H (None) /hpf Disposition Clinical Impression: Abdominal pain Disposition: HOME SELF-CARE Condition: Good Instructions (If sedation given, give patient instructions): Abdominal Pain (E D) Is patient prescribed a controlled substance at d/c from ED?: No Referrals: Gume Rodrigues Jr, [Primary Care Provider] - 1-2 days Time of Disposition: 12:22
[2024-09-07 11:01] LABS: ALT 15 U/L (4-49); AST 18 U/L (17-59); African American GFR (CKD) 90 (>60 ml/min/1.73 sqM); Albumin 3.9 g/dL (3.5-5.0); Alkaline Phosphatase 57 U/L (38-126); Amylase 45 U/L (30-110); Anion Gap 5 mmol/L; Blood Urea Nitrogen 26 mg/dL (9-20); Carbon Dioxide 24 mmol/L (22-30); Chloride 110 mmol/L (98-107); Glucose 141 mg/dL (74-99); Lipase 93 U/L (23-300); Non-African American GFR(CKD) 78 (>60 ml/min/1.73 sqM); Potassium 4.4 mmol/L (3.5-5.1); Sodium 139 mmol/L (137-145); Total Bilirubin 0.9 mg/dL (0.2-1.3); Total Protein 6.4 g/dL (6.3-8.2)
[2024-09-07] MEDS: SODIUM CHLORIDE 0.9% 1,000 ML IV STA (11:01)
--- NOTE | 2024-09-07 11:33 | CT ---
EXAMINATION TYPE: CT abdomen pelvis w con CT DLP: 1463.9 mGycm, Automated exposure control for dose reduction was used. DATE OF EXAM: 09/07/2024 11:24 AM COMPARISON: CTA abdomen and pelvis 07/03/2023, CT abdomen and pelvis 07/02/2023 CLINICAL INDICATION:Male, 79 years old with history of abdominal pain; LOWER ABDOMINAL PAIN TECHNIQUE: Standard CT of the abdomen and pelvis following the administration of 100 cc of Isovue 3 00 IV contrast material. Coronal and sagittal reformats were performed. FINDINGS: LOWER CHEST: Posterior dependent subsegmental atelectasis is noted. Mildly prominent heart. Aortic va lvular calcifications. ABDOMEN LIVER: Unremarkable GALLBLADDER AND BILE DUCTS: The gallbladder is surgically absent. No biliary ductal dilatation. PANCREAS: Unremarkable. SPLEEN: Unremarkable. ADRENAL GLANDS: Unremarkable. KIDNEYS AND URETERS: No evidence of hydronephrosis or renal calculus. The kidneys enhance symmetrical ly. Similar nonspecific bilateral perinephric fat stranding. Bilateral renal cysts the largest in the inferior pole of left kidney measuring 1.6 cm. Contrast is demonstrated within both collecting syste ms on the delayed phase. PELVIS BLADDER: Unremarkable REPRODUCTIVE: Coarse calcifications of the prostate gland are identified. ABDOMEN & PELVIS STOMACH AND BOWEL: Tiny hiatal hernia. Distal colonic diverticulosis without evidence for acute diver ticulitis. The appendix is within normal limits. No focal bowel wall thickening or surrounding inflam matory changes. No evidence of bowel obstruction. PERITONEUM: No evidence of pneumoperitoneum or free fluid. VASCULATURE: Mild atherosclerotic calcifications are present throughout the abdominal aorta and its b ranches. No evidence of aortic aneurysm. MUSCULOSKELETAL: No acute osseous abnormalities. [facility] of the lower thoracic spine. 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 LYMPH NODES: No gross evidence for lymphadenopathy. SOFT TISSUE/ABDOMINAL WALL: Small left inguinal hernia. IMPRESSION: 1. No CT evidence for an acute abdominal/pelvic process. 2. Colonic diverticulosis. [facility], , 09/07/2024 11:31 AM
[2024-09-07 12:05] LABS: Appearance,Urine Clear (Clear); Bilirubin,Urine Negative (Negative); Blood,Urine Trace (Negative); Color,Urine Colorless; Glucose,Urine (UA) Negative (Negative); Ketones,Urine Negative (Negative); Leukocyte Esterase,Urine Negative (Negative); Mucus,Urine Rare /hpf; Nitrite,Urine Negative (Negative); PH, Urine 5.5 (5.0-8.0); Protein,Urine Negative (Negative); RBC,Urine 2 /hpf (0-5); Specific Gravity,Urine 1.027 (1.001-1.035); Urobilinogen,Urine <2.0 mg/dL (<2.0); WBC,Urine 1 /hpf (0-5)
[2024-09-07 12:48] VITALS: BP 165/85; PULSE 72; RESP 16
== END 2024-09-07 12:50 | disposition home or self-care (01) ==
LOC: EC 09:54
CPT/HCPCS: 36415; 74177; 80053; 81001; 82150; 83605; 83690; 85025; 93005; 96360; 99284

== ENCOUNTER → 2024-10-12 | Outpatient (CLI) | payer MEDICARE, OTHER ==
--- NOTE | 2024-10-12 11:19 | XR ---
EXAMINATION TYPE: XR knee 4V RT DATE OF EXAM: 10/12/2024 10:39 AM COMPARISON: None. CLINICAL INDICATION: Male, 79 years old with history of M25.561 PAIN IN RIGHT KNEE, pain TECHNIQUE: XR knee 4V RT views were obtained FINDINGS: There is no acute fracture/dislocation. The tri-compartment joint spaces appear severely narrowed medially. The overlying soft tissue appears unremarkable. IMPRESSION: There is no acute fracture or dislocation.ICD 10 NO FRACTURE, INITIAL EVALUATION [facility], , 10/12/2024 11:17 AM
== END | disposition home or self-care (01) ==
LOC: RADXRMAIN 10:13
PROVIDERS: ATTEND Family Medicine
DX: M25.561 Pain in right knee (principal)